=== PATIENT | male | born 1975 | race Two or more races ===

== ENCOUNTER 2016-11-02 18:41 | Inpatient (IN) | payer BC ==
--- NOTE | 2016-11-02 19:50 | ER Document Report ---
ED Medical Screen (RME) - General Stated Complaint: ABDOMINAL PAIN,CHEST PAIN Notes: 41 yo male c/o lower abd pain and chest pain. chest pain started approx 5pm. left sided, nonradiating, sharp. mild shortness of breath, + nausea. + HTN, no diabetes, nonsmoker. no previous cardiac hx. pt is morbidly obese with known hernia, but became hard and painful today. pt very uncomfortable TRAVEL OUTSIDE OF THE [place] IN LAST 30 DAYS: No - Related Data Allergies/Adverse Reactions: Penicillins Allergy (Verified 05/12/15 14:14) Past Medical History - Past Medical History Cardiac Medical History: Reports: Hx Hypertension Denies: Hx Atrial Fibrillation, Hx Congestive Heart Failure, Hx DVT, Hx Heart Attack Past Surgical History: Reports: Hx Cholecystectomy - Immunizations Immunizations up to date: Yes Hx Diphtheria, Pertussis, Tetanus Vaccination: Yes - 2011 Physical Exam - Vital signs Vitals: Temp Pulse Resp BP Pulse Ox 98.1 F 83 20 188/121 H 99 11/02/16 19:36 11/02/16 19:36 11/02/16 19:36 11/02/16 19:36 11/02/16 19:36 Course - Vital Signs Vital signs: Temp Pulse Resp BP Pulse Ox 98.1 F 83 20 202/132 H 99 11/02/16 19:36 11/02/16 19:36 11/02/16 19:36 11/02/16 19:38 11/02/16 19:36
[2016-11-02] MEDS ORDERED: MORPHINE SULFATE 10 MG/ML INJ ONE (20:37)
--- NOTE | 2016-11-02 20:42 | ER Document Report ---
ED General - General Chief Complaint: Chest Pain > 30 Stated Complaint: ABDOMINAL PAIN,CHEST PAIN Cannot obtain history due to: Other - Patient is in severe distress Notes: Patient is a 41-year-old male with past history of a ventral hernia who presents with acute onset of severe progressively worsening pain in the ventral hernia. When I entered the room, patient is in agony, writhing around in the bed holding his abdomen. This does limit the history. He does note that he has never had anything like this in the past. He came directly to the emergency department when he began to experience these symptoms. Nothing improves or worsens his pain. He notes that he had a brief period of burning chest pain after an episode of vomiting but that this has since resolved. Denies any shortness of breath, weakness or numbness. TRAVEL OUTSIDE OF THE [place] IN LAST 30 DAYS: No - Related Data Allergies/Adverse Reactions: Penicillins Allergy (Verified 05/12/15 14:14) Home Medications: Current Home Medications No Home Medications 11/02/16 [History] Past Medical History - General Information source: Patient - Social History Smoking Status: Current Every Day Smoker Chew tobacco use (# tins/day): No Frequency of alcohol use: Occasional Drug Abuse: None Lives with: Spouse/Significant other Family History: Hypertension Patient has suicidal ideation: No Patient has homicidal ideation: No - Past Medical History Cardiac Medical History: Reports: Hx Hypertension - Noncompliant with medicaiton Denies: Hx Atrial Fibrillation, Hx Congestive Heart Failure, Hx DVT, Hx Heart Attack Renal/ Medical History: Denies: Hx Peritoneal Dialysis Past Surgical History: Reports: Hx Cholecystectomy - Immunizations Immunizations up to date: Yes Hx Diphtheria, Pertussis, Tetanus Vaccination: Yes - 2011 Review of Systems - Review of Systems Notes: Constitutional: Negative for fever. HENT: Negative for sore throat. Eyes: Negative for visual changes. Cardiovascular: Positive for chest pain. Respiratory: Negative for shortness of breath. Gastrointestinal: Negative for abdominal pain, vomiting negative for Genitourinary: Negative for dysuria. Musculoskeletal: Negative for back pain. Skin: Negative for rash. Neurological: Negative for headaches, weakness or numbness. 10 point ROS negative except as marked above and in HPI. Physical Exam - Vital signs Vitals: Temp Pulse Resp BP Pulse Ox 98.1 F 83 20 188/121 H 99 11/02/16 19:36 11/02/16 19:36 11/02/16 19:36 11/02/16 19:36 11/02/16 19:36 Interpretation: Hypertensive Notes: PHYSICAL EXAMINATION: GENERAL: Appears to be in severe pain. Writhing around in bed. HEAD: Atraumatic, normocephalic. EYES: Pupils equal round and reactive to light, extraocular movements intact, sclera anicteric, conjunctiva are normal. ENT: nares patent, oropharynx clear without exudates. Moderately dry mucous membranes. NECK: Normal range of motion, supple without lymphadenopathy LUNGS: Breath sounds clear to auscultation bilaterally and equal. No wheezes rales or rhonchi. HEART: Regular rate and rhythm without murmurs ABDOMEN: Obese abdomen. Left sided ventral hernia is extremely firm, painful on palpation. EXTREMITIES: Normal range of motion, no pitting or edema. No cyanosis. NEUROLOGICAL: No focal neurological deficits. Moves all extremities spontaneously and on command. PSYCH: Appears to be in severe pain, anxious but appropriate SKIN: Warm, Dry, normal turgor, no rashes or lesions noted. Course - Re-evaluation Re-evalutation: 11/02/16 20:41 Immediately upon picking the chart I went to assess this patient who was noted to be in severe distress, writhing around in the bed in pain. He has a large left-sided ventral wall hernia that appears to be incarcerated. It is firm and exquisitely tender to palpation. Immediately ordered 10 mg of IV morphine. I immediately called the surgeon voice data communications engineer Dr. Mohamud who will come to asses the patient. Labs have been sent and are pending. 11/02/16 21:11 Dr. Mohamud has assessed the patient and will take emergently to the operating room given clinical exam. Labs have returned and show leukocytosis but otherwise unremarkable. Regarding patient's initial complaint of chest pain: He denies this at this time. His initial EKG is unremarkable without ST changes. I suspect his pain may have been related to nausea and vomiting in the setting of an incarcerated hernia but doubt he is having an AR in the setting of this time. - Vital Signs Vital signs: Temp Pulse Resp BP Pulse Ox 97.1 F 82 15 130/85 H 99 11/03/16 01:10 11/03/16 01:10 11/03/16 02:31 11/03/16 02:31 11/03/16 02:31 - Laboratory Result Diagrams: 11/03/16 03:55 11/02/16 20:30 Laboratory results interpreted by me: 11/02/16 11/02/16 20:30 20:30 WBC 18.0 H RBC 5.70 H Seg Neutrophils % 82.6 H Lymphocytes % 9.5 L Absolute Neutrophils 14.9 H Alkaline Phosphatase 131 H Creatine Kinase 272 H Discharge - Discharge Clinical Impression: Incarcerated ventral hernia Condition: Critical Disposition: ADMITTED INPATIENT Admitting Provider: Surgicalist - [facility] Admitted: OR
[2016-11-02] MEDS ORDERED: NORMAL SALINE 1000 ML 1,000 ML IV ONE (20:43)
[2016-11-02 20:46] LABS: ABSOLUTE BASOPHILS # (AUTO) 0.1 10^3/uL (0.0-0.2); ABSOLUTE EOSINOPHILS # (AUTO) 0.1 10^3/uL (0.0-0.6); ABSOLUTE LYMPHOCYTES (AUTO) 1.7 10^3/uL (0.5-4.7); ABSOLUTE MONOCYTES (AUTO) 1.2 10^3/uL (0.1-1.4); ABSOLUTE NEUT (AUTO) 14.9 10^3/uL (1.7-8.2); BASOPHILS % (AUTO) 0.4 % (0-2); EOSINOPHILS % (AUTO) 0.7 % (0-6); HEMOGLOBIN 15.6 g/dL (13.5-17.0); HGB HCT DIFFERENCE -0.2; LYMPHOCYTES % (AUTO) 9.5 % (13-45); MEAN CORPUSCULAR HEMOGLOBIN 27.3 pg (27.0-33.4); MEAN CORPUSCULAR HGB CONC 33.1 g/dL (32.0-36.0); MEAN CORPUSCULAR VOLUME 83 fl (80-97); MONOCYTES % (AUTO) 6.8 % (3-13); RED CELL DISTRIBUTION WIDTH 13.5 % (11.5-14.0); SEGMENTED NEUTROPHILS % (AUTO) 82.6 % (42-78)
[2016-11-02 21:08] LABS: ALANINE AMINOTRANSFERASE 35 U/L (21-72); ALBUMIN 4.8 g/dL (3.5-5.0); ALKALINE PHOSPHATASE 131 U/L (38-126); ANION GAP 15 (5-19); ASPARTATE AMINO TRANSFERASE 30 U/L (17-59); BILIRUBIN,TOTAL 0.8 mg/dL (0.2-1.3); BLOOD UREA NITROGEN 17 mg/dL (7-20); CALCIUM 9.9 mg/dL (8.4-10.2); CARBON DIOXIDE 24 mmol/L (22-30); CHLORIDE 104 mmol/L (98-107); CREATINE KINASE 272 U/L (55-170); GLUCOSE 90 mg/dL (75-110); LIPASE 58.2 U/L (23-300); POTASSIUM 4.1 mmol/L (3.6-5.0); SODIUM 143.2 mmol/L (137-145); TOTAL PROTEIN 8.2 g/dL (6.3-8.2)
[2016-11-02 21:19] LABS: TROPONIN I < 0.012 ng/mL
[2016-11-02] MEDS ORDERED: FENTANYL CITRATE INJ/PF 250 MCG/5 ML AMPULE ONE (21:40)
[2016-11-02] MEDS ORDERED: MIDAZOLAM 2 MG/2 ML INJ ONE (21:41)
[2016-11-02] MEDS ORDERED: PROPOFOL INJ 200 MG/20 ML VIAL IV ONE (21:41)
[2016-11-02] MEDS ORDERED: ACETAMINOPHEN 100 ML IV ONE (21:41)
[2016-11-02] MEDS ORDERED: HYDROMORPHONE HCL INJ/PF 2 MG/ML AMPULE ONE ×2 (21:41→21:42)
[2016-11-02] MEDS ORDERED: CLINDAMYCIN 900 MG/D5W RTU 50 ML IV ONE (22:11)
--- NOTE | 2016-11-02 22:11 | PDOC H&P ---
History of Present Illness Admission Date/PCP: 11/02/16 21:32 History of Present Illness: JIAN SEYMOUR is a 41 year old male who noticed acute onset of severe abdominal pain around a ventral/umbilical hernia at 1 PM today. The patient had an open cholecystectomy for gangrenous cholecystitis in 1999 at [facility] in [place]. Within 2-3 years after surgery, he noticed a small egg-sized lump above his umbilicus. This is where a drain exited his abdomen after surgery. Approximate 4 years ago he noticed the bulge above his umbilicus had increased in size to that of a softball. It remained soft and was only tender if bumped or excessively manipulated. Today at 1 PM he was at work changing the battery in a vehicle at approximately 1 PM when he noticed increased pain around the lump, as well as a significant increase in the size lump. The lump was also very firm. The pain began as moderate pain and increased to severe, 10/10, sharp, incessant pain. He began having nausea shortness of breath, all related to severe pain. He presented to the emergency room. The pain was exquisitely tender to palpation. He was given 10 mg of morphine in the emergency department which only slightly decreased his pain. Surgery was consulted for suspected incarcerated, strangulated ventral hernia. Past Medical History Cardiac Medical History: Reports: Hypertension - Noncompliant with medicaiton Denies: Atrial Fibrillation, Congestive Heart Failure, DVT, Myocardial Infarction Endocrine Medical History: Reports: Obesity Past Surgical History Past Surgical History: Reports: Cholecystectomy Social History Information Source: Patient Lives with: Family Smoking Status: Current Every Day Smoker Cigars Per Day: 1 Frequency of Alcohol Use: Occasional - 3 beers per week Hx Recreational Drug Use: No Drugs: None Family History Family History: CAD, CVA, DM, Hypertension, Other - No family or personal history of bleeding disorders, blood clots or anesthesia problems. Parental Family History Reviewed: Yes Children Family History Reviewed: Yes Sibling(s) Family History Reviewed.: Yes Medication/Allergy Home Medications: No Home Medications 11/02/16 Allergies/Adverse Reactions: Penicillins Allergy (Verified 05/12/15 14:14) Review of Systems All systems: reviewed and no additional remarkable complaints except as stated Physical Exam Vital Signs: Temp Pulse Resp BP Pulse Ox 98.1 F 83 19 202/118 H 99 11/02/16 19:36 02/01/17 19:36 11/02/16 21:02 11/02/16 21:02 11/02/16 21:02 General appearance: PRESENT: mild distress - The patient is in mild to moderate distress until reduction was attempted. During reduction in for several minutes afterwards he is in severe distress., morbidly obese Head exam: PRESENT: normocephalic Eye exam: PRESENT: EOMI Mouth exam: PRESENT: tongue midline Neck exam: ABSENT: JVD, lymphadenopathy, tenderness, thyromegaly Respiratory exam: PRESENT: clear to auscultation cecilia Cardiovascular exam: PRESENT: RRR, tachycardia GI/Abdominal exam: PRESENT: guarding, rigid - Large, rigid, exquisitely tender bulge above the umbilicus. The bulge is approximately the size of a small loaf of bread. Reduction is attempted after 10 mg of morphine were given. The patient is crying out, tearful, writhing in pain. Reduction is unsuccessful after multiple attempts., tenderness Extremities exam: ABSENT: tenderness Neurological exam: PRESENT: alert, oriented to person, oriented to place, oriented to time, oriented to situation Psychiatric exam: PRESENT: appropriate affect - Appropriate given the situation Skin exam: PRESENT: other - Tattoos. ABSENT: jaundice, rash Results Laboratory Results: White count is 18 with a left shift. Alkaline phosphatase and CK are elevated. Assessment & Plan - Diagnosis (1) Incarcerated ventral hernia Is this a current diagnosis for this admission?: YesPlan: Morbidly obese male with uncontrolled hypertension. Incarcerated, probably strangulated ventral incisional hernia. Recommend emergent ventral incisional hernia repair. Possible bowel resection, possible ostomy creation, possible mesh placement. I explained that mesh will not be placed if there is compromised bowel or infection. I explained that there will be a high rate of recurrence of this hernia under the circumstances and given his morbid obesity. Our primary concern is trying to intervene before bowel becomes ischemic. We discussed ventral incisional hernia repair, possible ostomy creation, possible bowel resection, possible mesh placement in detail. Questions were answered. We discussed the risks, benefits and alternatives including , heart attack , stroke, blood clots in the legs, blood clots in lungs, pneumonia, bleeding, infection, mesh infection, hernia, anastomotic leak, damage to surrounding structures such as bladder, bowels, blood vessels or other abdominal structures resulting in serious long-term health issues. We discussed possible ostomy creation and possible ostomy reversal, but that not all ostomies are reversed. Understands and wishes to proceed. Nothing by mouth, IV fluids, clindamycin preop IV antibiotics due to penicillin allergy, SCDs, Caba catheter once asleep.
[2016-11-02] MEDS ORDERED: LIDOCAINE 1% INJ-PF (10 MG/ML) 30 ML SDV ONE (22:42)
[2016-11-02] MEDS ORDERED: BUPIVACAINE HCL 0.25% /EPINEPHRINE INJ/PF 30 ML SDV ONE (22:42)
[2016-11-02] MEDS ORDERED: BUPIVACAINE HCL 0.25% /EPINEPHRINE INJ/PF 30 ML SDV INJ ONE (22:43)
[2016-11-02] MEDS ORDERED: LIDOCAINE 1% INJ-PF (10 MG/ML) 30 ML SDV INJ ONE (22:43)
[2016-11-02] MEDS ORDERED: LABETALOL HCL INJ 20 MG/4 ML DISP.SYRIN IV PRN (23:11)
[2016-11-02] MEDS ORDERED: MEPERIDINE HCL/PF INJ 25 MG/1 ML DISP.SYRIN IV PRN (23:11)
[2016-11-02] MEDS ORDERED: MORPHINE SULFATE 10 MG/ML INJ IV PRN (23:11)
[2016-11-02] MEDS ORDERED: PROMETHAZINE HCL INJ 25 MG/1 ML VIAL IV PRN (23:11)
[2016-11-02] MEDS ORDERED: FENTANYL CITRATE INJ/PF 100 MCG/2 ML AMPUL IV PRN ×3 (23:11)
[2016-11-02] MEDS ORDERED: DIPHENHYDRAMINE HCL 50 MG/ML VIAL IV PRN (23:11)
[2016-11-03] MEDS ORDERED: PROPOFOL 100 ML IV ONE (00:52)
[2016-11-03] MEDS ORDERED: MORPHINE SULFATE 10 MG/ML INJ IV PRN (01:18)
--- NOTE | 2016-11-03 01:30 | Brief Operative Note ---
BRIEF OPERATIVE REPORT DATE OF SURGERY: 11/03/16 TIME OF SURGERY: 00:30 PREOPERATIVE DIAGNOSIS: Incarcerated ventral hernia. POSTOPERATIVE DIAGNOSIS: Incarcerated, strangulated ventral hernia with ischemic small bowel. SURGEON: UGO KC FINDINGS: Incarcerated strangulated small bowel in a ventral hernia. COMPLICATIONS: None noted. ESTIMATED BLOOD LOSS: 150 mL TISSUE REMOVED OR ALTERED: 1. Hernia sac. 2. Small bowel. TECHNICAL PROCEDURE: 1. Small bowel resection. 2. Primary ventral hernia repair.
[2016-11-03] MEDS ORDERED: INFLUENZA ADLT QUAD (36MOS+) 2016-17 VAC 0.5 ML SYR IM PRN (02:52)
[2016-11-03] MEDS ORDERED: PANTOPRAZOLE SODIUM 40 MG VIAL IV ONE (03:00)
[2016-11-03] MEDS: PROPOFOL 100 ML IV PRN ×3 (03:09→07:00)
[2016-11-03] MEDS: MORPHINE SULFATE 10 MG/ML INJ IV PRN ×6 (03:24→23:33)
[2016-11-03 04:04] LABS: HEMATOCRIT 43.2 % (37.9-51.0); HEMOGLOBIN 14.4 g/dL (13.5-17.0); MEAN CORPUSCULAR HEMOGLOBIN 27.4 pg (27.0-33.4); MEAN CORPUSCULAR HGB CONC 33.3 g/dL (32.0-36.0); MEAN CORPUSCULAR VOLUME 82 fl (80-97); RED BLOOD COUNT 5.23 10^6/uL (4.35-5.55); RED CELL DISTRIBUTION WIDTH 13.6 % (11.5-14.0); WHITE BLOOD COUNT 17.4 10^3/uL (4.0-10.5)
[2016-11-03 04:20] LABS: AMORPHOUS SEDIMENT,URINE 1+ /HPF; APPEARANCE,URINE TURBID; BILIRUBIN,URINE NEGATIVE (NEGATIVE); GLUCOSE, URINE NEGATIVE (NEGATIVE); KETONES,URINE NEGATIVE (NEGATIVE); LEUKOCYTE ESTERASE,URINE NEGATIVE (NEGATIVE); NITRITE,URINE NEGATIVE (NEGATIVE); PROTEIN,URINE NEGATIVE (NEGATIVE); URINE SPECIFIC GRAVITY 1.031; UROBILINOGEN,URINE NEGATIVE mg/dL (<2.0)
[2016-11-03 04:22] LABS: ALANINE AMINOTRANSFERASE 73 U/L (21-72); ALBUMIN 3.4 g/dL (3.5-5.0); ALKALINE PHOSPHATASE 102 U/L (38-126); ANION GAP 9 (5-19); ASPARTATE AMINO TRANSFERASE 77 U/L (17-59); BILIRUBIN,TOTAL 1.1 mg/dL (0.2-1.3); BLOOD UREA NITROGEN 16 mg/dL (7-20); CALCIUM 8.9 mg/dL (8.4-10.2); CARBON DIOXIDE 25 mmol/L (22-30); CHLORIDE 106 mmol/L (98-107); CREATININE RESULT 0.81 mg/dL (0.52-1.25); GLUCOSE 120 mg/dL (75-110); PHOSPHORUS 4.4 mg/dL (2.5-4.5); POTASSIUM 4.4 mmol/L (3.6-5.0); TOTAL PROTEIN 6.6 g/dL (6.3-8.2); TRIGLYCERIDES 120 mg/dL (<150)
[2016-11-03] MEDS: RINGERS SOLUTION,LACTATED 1,000 ML IV PRN ×2 (07:00→18:42)
[2016-11-03] MEDS: ONDANSETRON HCL INJ/PF 4 MG/2 ML SDV IV PRN (08:08)
--- NOTE | 2016-11-03 08:40 | Operative Report ---
Operative Report DATE OF SURGERY: 11/03/16 PREOPERATIVE DIAGNOSIS: Incarcerated ventral hernia. POSTOPERATIVE DIAGNOSIS: Incarcerated, strangulated ventral hernia with ischemic small bowel. OPERATION: 1. Small bowel resection. 2. Primary ventral hernia repair. SURGEON: UGO KC ANESTHESIA: GA TISSUE REMOVED OR ALTERED: 1. Hernia sac. 2. Small bowel. COMPLICATIONS: None noted ESTIMATED BLOOD LOSS: 150 mL INTRAOPERATIVE FINDINGS: Incarcerated strangulated small bowel in a ventral hernia. PROCEDURE: Patient was brought to the operative suite and placed supine on the OR table. Timeout was performed. Antibiotics were administered. SCDs were placed. Padding and positioning was appropriate. Patient was induced and intubated and maintained on general endotracheal anesthesia throughout the procedure. Caba catheter was placed sterilely. Patient was prepped and draped. Vertical midline incision was made over the hernia contents. Incision extended from the umbilicus approximately half way to the epigastrium. This incision was later extended 2-3 cm in each direction. The incision was made with a 10 blade scalpel and then continued down with electrocautery to the hernia sac. The hernia sac was carefully dissected through with sharp and blunt dissection as well as cautery. The hernia sac contained ischemic bowel, unhealthy but not ischemic bowel, and omentum. The hernia defect was approximately 6 cm in diameter and was extended for 5 cm superiorly to allow for reduction of the abdominal contents. The hernia sac was dissected out down to the level of the fascia circumferentially. The hernia sac had many pockets and outpouchings which were all dissected out. Attachments of the omentum to various parts of the hernia sac were divided with electrocautery. The hernia sac was dissected free of the surrounding subcutaneous tissue, was excised and sent to pathology for further analysis. The bowel, which had been in the abdominal cavity for greater than half an hour at this point, was again evaluated. The unhealthy but nonischemic appearing portions all looked healthy at this point. The omentum was nonischemic. Some bleeding points on the omentum were controlled with electrocautery. The remaining segment of bowel which was approximately 45 cm long appeared ischemic with a compromised mesentery. This portion of ischemic bowel was resected. It appeared to be around the junction of the jejunum and ileum. It was resected by dividing at both ends with a WEI blue load 55 mm stapler. The intervening segment of mesentery was taken down with LigaSure device. The 2 ends were then anastomosed with a [id number] functional end and anastomosis. The common channel was created by firing a blue load 55 mm WEI stapler down the antimesenteric portions of the side-by- side bowel. The resulting in enterotomy was closed with a TX 60 stapler. A 3- 0 silk crotch stitch was placed. The mesenteric defect was closed with a running 3-0 Vicryl. 2 small bleeding points were controlled with electrocautery and a 3-0 Vicryl hemostatic stitch. The anastomosis was widely patent, and had no kinks or twist, and had no tension. It was placed back into the abdominal cavity. The abdominal cavity was surveyed. A bleeding point on the omentum was controlled with cautery. The bowel was run from terminal ileum to ligament of Treitz. The anastomosis appeared healthy and no other issues were found. The abdominal cavity was closed at the level of the fascia with a looped PDS suture. 2 were used, one working superior to inferior and one working inferior to superior and tying in the middle. Since compromised, ischemic bowel was present in the hernia defect and the bowel resection was performed with controlled spillage, but spillage nonetheless, no mesh was placed. Preliminary counts were correct prior to fascial closure. The resulting midline wound was irrigated copiously and then a wound VAC was placed in the defect. All lap needle sponge counts were correct. The patient tolerated the procedure well and was taken to the ICU still intubated.
[2016-11-03] MEDS: PANTOPRAZOLE SODIUM 40 MG VIAL IV SCH ×2 (10:15→21:50)
--- NOTE | 2016-11-03 10:48 | PDOC PROGRESS REPORT ---
Subjective Progress Note for:: 11/03/16 Subjective:: Patient self extubated himself but the is doing well await an alert and appropriate. Physical Exam Vital Signs: Temp Pulse Resp BP Pulse Ox 98.4 F 60 18 157/98 H 99 11/03/16 08:00 11/03/16 10:00 11/03/16 10:00 11/03/16 08:00 11/03/16 10:00 Intake & Output 11/02/16 11/03/16 11/04/16 06:59 06:59 06:59 Output Total 245 275 Balance -245 -275 Weight 153.7 kg General appearance: PRESENT: no acute distress, cooperative Respiratory exam: PRESENT: clear to auscultation cecilia Cardiovascular exam: PRESENT: RRR GI/Abdominal exam: PRESENT: other - Soft, obese, difficult to tell whether he is distended. Wound VAC in place. Appropriate mild tenderness. Extremities exam: PRESENT: other - No swelling, no tenderness Neurological exam: PRESENT: oriented to person, oriented to place Psychiatric exam: PRESENT: appropriate affect Results Laboratory Results: 11/03/16 03:55 11/03/16 03:55 11/03/16 11/03/16 11/03/16 03:45 03:55 03:55 WBC 17.4 H RBC 5.23 Hgb 14.4 Hct 43.2 MCV 82 MCH 27.4 MCHC 33.3 RDW 13.6 Plt Count 238 Sodium 140.0 Potassium 4.4 Chloride 106 Carbon Dioxide 25 Anion Gap 9 BUN 16 Creatinine 0.81 Est GFR ( Amer) > 60 Est GFR (Non-Af Amer) > 60 Glucose 120 H Calcium 8.9 Phosphorus 4.4 Magnesium 2.0 Total Bilirubin 1.1 AST 77 H ALT 73 H Alkaline Phosphatase 102 Total Protein 6.6 Albumin 3.4 L Triglycerides 120 Urine Color YELLOW Urine Appearance TURBID Urine pH 5.0 Ur Specific Rindge 1.031 Urine Protein NEGATIVE Urine Glucose (UA) NEGATIVE Urine Ketones NEGATIVE Urine Blood SMALL H Urine Nitrite NEGATIVE Ur Leukocyte Esterase NEGATIVE Urine RBC (Auto) 6 Impressions: Chest X-Ray 11/03/16 01:23 IMPRESSION: Perihilar airspace densities are identified which could represent atelectatic changes or perihilar infiltrates. Other findings as noted above Assessment & Plan - Diagnosis (1) Incarcerated ventral hernia Is this a current diagnosis for this admission?: YesPlan: With strangulated small bowel status post resection and primary repair. Patient looks good. We'll keep an eye on him in the ICU with probable transfer to the floor tomorrow. Will get patient out of bed ambulating. Await bowel function.
--- NOTE | 2016-11-03 11:18 | EKG REPORT ---
SEVERITY:- NORMAL ECG - SINUS RHYTHM : Confirmed by: Adriana Thorne 03-Nov-2016 11:18:19
[2016-11-03] MEDS: ENOXAPARIN SODIUM INJ 40 MG/0.4 ML DISP.SYRIN SUBCUT SCH (12:26)
[2016-11-04] MEDS: MORPHINE SULFATE 10 MG/ML INJ IV PRN ×5 (02:35→21:08)
[2016-11-04] MEDS: RINGERS SOLUTION,LACTATED 1,000 ML IV PRN ×2 (03:49→13:19)
[2016-11-04 04:37] LABS: HEMATOCRIT 42.6 % (37.9-51.0); HGB HCT DIFFERENCE -0.6; MEAN CORPUSCULAR HEMOGLOBIN 27.9 pg (27.0-33.4); MEAN CORPUSCULAR HGB CONC 32.9 g/dL (32.0-36.0); MEAN CORPUSCULAR VOLUME 85 fl (80-97); RED BLOOD COUNT 5.04 10^6/uL (4.35-5.55); RED CELL DISTRIBUTION WIDTH 14.1 % (11.5-14.0); WHITE BLOOD COUNT 13.4 10^3/uL (4.0-10.5)
[2016-11-04 04:49] LABS: ALANINE AMINOTRANSFERASE 66 U/L (21-72); ALBUMIN 3.6 g/dL (3.5-5.0); ALKALINE PHOSPHATASE 99 U/L (38-126); ANION GAP 9 (5-19); ASPARTATE AMINO TRANSFERASE 31 U/L (17-59); BILIRUBIN,TOTAL 1.2 mg/dL (0.2-1.3); BLOOD UREA NITROGEN 12 mg/dL (7-20); CALCIUM 8.7 mg/dL (8.4-10.2); CARBON DIOXIDE 27 mmol/L (22-30); CHLORIDE 105 mmol/L (98-107); CREATININE RESULT 0.84 mg/dL (0.52-1.25); GLUCOSE 84 mg/dL (75-110); MAGNESIUM 1.9 mg/dL (1.6-2.3); PHOSPHORUS 3.5 mg/dL (2.5-4.5); POTASSIUM 4.1 mmol/L (3.6-5.0); SODIUM 140.7 mmol/L (137-145); TOTAL PROTEIN 6.4 g/dL (6.3-8.2)
[2016-11-04] MEDS: ENOXAPARIN SODIUM INJ 40 MG/0.4 ML DISP.SYRIN SUBCUT SCH (07:32)
[2016-11-04] MEDS: PANTOPRAZOLE SODIUM 40 MG VIAL IV SCH ×2 (09:39→22:27)
[2016-11-04] MEDS ORDERED: MORPHINE SULFATE 10 MG/ML INJ IV ONE (23:00)
[2016-11-05] MEDS: MORPHINE SULFATE 10 MG/ML INJ IV PRN ×8 (00:05→22:48)
[2016-11-05] MEDS: RINGERS SOLUTION,LACTATED 1,000 ML IV PRN ×2 (00:33→11:12)
[2016-11-05] MEDS: ONDANSETRON HCL INJ/PF 4 MG/2 ML SDV IV PRN ×2 (05:45→22:50)
--- NOTE | 2016-11-05 06:10 | PDOC PROGRESS REPORT ---
Subjective Progress Note for:: 11/04/16 Subjective:: Late note for 11/04/2016 rounding. Denies nausea or vomiting. Thirsty. Pain control still an issue. Physical Exam Vital Signs: Temp Pulse Resp BP Pulse Ox 100.3 F 107 H 20 140/82 H 98 11/04/16 23:18 11/05/16 02:00 11/04/16 23:18 11/04/16 23:18 11/04/16 23:18 Intake & Output 11/03/16 11/04/16 11/05/16 06:59 06:59 06:59 Intake Total 1695 1024 Output Total 245 1350 1175 Balance -245 345 -151 Weight 153.7 kg 156 kg 156 kg General appearance: PRESENT: no acute distress, morbidly obese Head exam: PRESENT: normocephalic GI/Abdominal exam: PRESENT: distended, soft, tenderness, other - No bowel sounds. Pain seems to be around the incision. Wound VAC in place. Was on intermittent pressure, switched to continuous pressure. Neurological exam: PRESENT: alert, oriented to situation Psychiatric exam: PRESENT: appropriate affect, normal mood Skin exam: ABSENT: jaundice Results Laboratory Results: 11/04/16 04:25 11/04/16 04:25 Impressions: Chest X-Ray 11/03/16 01:23 IMPRESSION: Perihilar airspace densities are identified which could represent atelectatic changes or perihilar infiltrates. Other findings as noted above Assessment & Plan - Diagnosis (1) Incarcerated ventral hernia Is this a current diagnosis for this admission?: YesPlan: Remove Caba. Ice chips. Abdominal binder. Keep wound VAC on continuous 105 mmHg suction.
[2016-11-05 06:46] LABS: ABSOLUTE EOSINOPHILS # (AUTO) 0.1 10^3/uL (0.0-0.6); ABSOLUTE LYMPHOCYTES (AUTO) 0.9 10^3/uL (0.5-4.7); ABSOLUTE MONOCYTES (AUTO) 1.5 10^3/uL (0.1-1.4); ABSOLUTE NEUT (AUTO) 14.2 10^3/uL (1.7-8.2); BASOPHILS % (AUTO) 0.2 % (0-2); EOSINOPHILS % (AUTO) 0.3 % (0-6); HEMOGLOBIN 14.2 g/dL (13.5-17.0); HGB HCT DIFFERENCE -0.4; LYMPHOCYTES % (AUTO) 5.2 % (13-45); MEAN CORPUSCULAR HEMOGLOBIN 27.8 pg (27.0-33.4); MEAN CORPUSCULAR HGB CONC 32.9 g/dL (32.0-36.0); MEAN CORPUSCULAR VOLUME 85 fl (80-97); MONOCYTES % (AUTO) 9.2 % (3-13); RED BLOOD COUNT 5.09 10^6/uL (4.35-5.55); RED CELL DISTRIBUTION WIDTH 13.7 % (11.5-14.0); SEGMENTED NEUTROPHILS % (AUTO) 85.1 % (42-78); WHITE BLOOD COUNT 16.7 10^3/uL (4.0-10.5)
[2016-11-05 06:56] LABS: ALANINE AMINOTRANSFERASE 41 U/L (21-72); ALBUMIN 3.4 g/dL (3.5-5.0); ALKALINE PHOSPHATASE 110 U/L (38-126); ANION GAP 10 (5-19); ASPARTATE AMINO TRANSFERASE 26 U/L (17-59); BILIRUBIN,TOTAL 1.1 mg/dL (0.2-1.3); BLOOD UREA NITROGEN 12 mg/dL (7-20); CALCIUM 8.8 mg/dL (8.4-10.2); CARBON DIOXIDE 28 mmol/L (22-30); CHLORIDE 102 mmol/L (98-107); CREATININE RESULT 0.78 mg/dL (0.52-1.25); GLUCOSE 88 mg/dL (75-110); MAGNESIUM 1.9 mg/dL (1.6-2.3); PHOSPHORUS 3.3 mg/dL (2.5-4.5); POTASSIUM 3.9 mmol/L (3.6-5.0); SODIUM 140.3 mmol/L (137-145); TOTAL PROTEIN 7.5 g/dL (6.3-8.2)
[2016-11-05] MEDS: ENOXAPARIN SODIUM INJ 40 MG/0.4 ML DISP.SYRIN SUBCUT SCH (07:32)
[2016-11-05] MEDS: PANTOPRAZOLE SODIUM 40 MG VIAL IV SCH ×2 (09:30→21:29)
--- NOTE | 2016-11-05 12:02 | PDOC CONSULTATION ---
Consultation Consult Date: 11/05/16 Attending physician:: UGO KC Consult reason:: Fever in a postop patient History of Present Illness Admission Date/PCP: 11/03/16 01:18 History of Present Illness: JIAN SEYMOUR is a 41 year old male who was admitted with a strangulated umbilical hernia. Patient has undergone surgical repair of this. Patient has had a fever and elevated white count postoperatively as well some pain. A CT scan done today shows bilateral pneumonia. Patient reports that he has had a cough has been relatively nonproductive. He denies any chest pain and denies any shortness of breath. His history is remarkable for hypertension and having obesity but no history of sleep apnea by his report. Past Medical History Cardiac Medical History: Reports: Hypertension - Noncompliant with medicaiton Denies: Atrial Fibrillation, Congestive Heart Failure, DVT, Myocardial Infarction EENT Medical History: Reports: None Neurological Medical History: Reports: None Endocrine Medical History: Reports: Obesity Malignancy Medical History: Reports: None GI Medical History: Reports: Other - Strangulated umbilical hernia Musculoskeltal Medical History: Reports: None Skin Medical History: Reports: None Psychiatric Medical History: Reports: None Traumatic Medical History: Reports: None Hematology: Reports: None Infectious Medical History: Reports: None Past Surgical History Past Surgical History: Reports: Cholecystectomy Social History Information Source: Patient Lives with: Spouse/Significant other Smoking Status: Current Every Day Smoker Cigars Per Day: 1 Frequency of Alcohol Use: Occasional - 3 beers per week Hx Recreational Drug Use: No Drugs: None Hx Prescription Drug Abuse: No - Advance Directive Resuscitation Status: Full Code Family History Family History: Hypertension Family History: Father is 70 alive and has diabetes, hypertension, gout, hypothyroidism. Mother is alive in a 61. She has problems with low blood pressure but no other problems. Parental Family History Reviewed: Yes Children Family History Reviewed: No Sibling(s) Family History Reviewed.: No Medication/Allergy Home Medications: No Home Medications 11/02/16 Allergies/Adverse Reactions: Penicillins Allergy (Verified 05/12/15 14:14) Review of Systems Constitutional: PRESENT: fever(s) Eyes: ABSENT: visual disturbances Ears: ABSENT: hearing changes Cardiovascular: ABSENT: chest pain, dyspnea on exertion, edema, orthropnea, palpitations Respiratory: PRESENT: cough. ABSENT: hemoptysis Gastrointestinal: PRESENT: abdominal pain Genitourinary: PRESENT: as per HPI Musculoskeletal: ABSENT: joint swelling Integumentary: ABSENT: rash Neurological: ABSENT: abnormal gait, abnormal speech, confusion, dizziness, focal weakness, syncope Psychiatric: ABSENT: anxiety, depression Endocrine: ABSENT: cold intolerance, heat intolerance, polydipsia, polyuria Hematologic/Lymphatic: ABSENT: easy bleeding, easy bruising Physical Exam Vital Signs: Temp Pulse Resp BP Pulse Ox 99.8 F 110 H 19 178/99 H 91 L 11/05/16 11:42 11/05/16 11:42 11/05/16 11:42 11/05/16 11:42 11/05/16 11:42 Intake & Output 11/04/16 11/05/16 11/06/16 06:59 06:59 06:59 Intake Total 1695 2309 Output Total 1350 1725 Balance 345 584 Weight 156 kg 154.5 kg General appearance: PRESENT: no acute distress, morbidly obese Head exam: PRESENT: atraumatic, normocephalic Eye exam: PRESENT: conjunctiva pink, EOMI, PERRLA. ABSENT: scleral icterus Ear exam: PRESENT: normal external ear exam Mouth exam: PRESENT: moist, tongue midline Neck exam: ABSENT: carotid bruit, JVD, lymphadenopathy, thyromegaly Respiratory exam: PRESENT: rhonchi - Few scattered rhonchi bilaterally. Cardiovascular exam: PRESENT: RRR. ABSENT: diastolic murmur, rubs, systolic murmur GI/Abdominal exam: PRESENT: tenderness, other - Patient has an open surgical wound in the midline with a wound VAC in place.. ABSENT: distended, guarding, mass, organolmegaly, rebound Rectal exam: PRESENT: deferred Extremities exam: PRESENT: full ROM. ABSENT: calf tenderness, clubbing, pedal edema Neurological exam: PRESENT: alert, awake, oriented to person, oriented to place , oriented to time, oriented to situation, CN II-XII grossly intact. ABSENT: motor sensory deficit Psychiatric exam: PRESENT: appropriate affect Skin exam: PRESENT: dry, intact, warm, other - Midline surgical abdominal wound with wound VAC in place.. ABSENT: cyanosis, rash Results Laboratory Results: 11/05/16 06:21 11/05/16 06:21 11/05/16 11/05/16 06:21 06:21 WBC 16.7 H RBC 5.09 Hgb 14.2 Hct 43.0 MCV 85 MCH 27.8 MCHC 32.9 RDW 13.7 Plt Count 231 Seg Neutrophils % 85.1 H Lymphocytes % 5.2 L Monocytes % 9.2 Eosinophils % 0.3 Basophils % 0.2 Absolute Neutrophils 14.2 H Absolute Lymphocytes 0.9 Absolute Monocytes 1.5 H Absolute Eosinophils 0.1 Absolute Basophils 0.0 Sodium 140.3 Potassium 3.9 Chloride 102 Carbon Dioxide 28 Anion Gap 10 BUN 12 Creatinine 0.78 Est GFR ( Amer) > 60 Est GFR (Non-Af Amer) > 60 Glucose 88 Calcium 8.8 Phosphorus 3.3 Magnesium 1.9 Total Bilirubin 1.1 AST 26 ALT 41 Alkaline Phosphatase 110 Total Protein 7.5 Albumin 3.4 L Impressions: Abdomen/Pelvis CT 11/05/16 00:00 IMPRESSION: Edema and subcutaneous soft tissues and central peritoneal, expected sequelae from recent surgery. Bilateral pneumonia. Chest X-Ray 11/05/16 07:32 IMPRESSION: Basilar opacities. Assessment & Plan - Diagnosis (1) Pneumonia Is this a current diagnosis for this admission?: YesPlan: The patient has bilateral pneumonia found on CT scan done of the abdomen. Postoperatively he has not been moving around much is encouraged to get up out of bed as much as possible. Will obtain blood and sputum cultures. We'll start on Levaquin and Zyvox. He is encouraged to try to ambulate as much as possible. (2) Incarcerated ventral hernia Is this a current diagnosis for this admission?: YesPlan: Patient has had surgical repair of this. (3) Hypertension Is this a current diagnosis for this admission?: YesPlan: Patient is getting labetalol when necessary. - Time Time Spent: 50 to 70 Minutes - Inpatient Certification Medical Necessity: Need for IV Antibiotics - Plan Summary Plan Summary: We'll continue to follow this patient along with you
[2016-11-05] MEDS ORDERED: LINEZOLID 600 MG RTU 300 ML IV ONE (12:15)
[2016-11-05] MEDS: LEVOFLOXACIN 750 MG/D5W RTU 750 MG/150 ML RTUPB IV SCH (13:26)
[2016-11-05 15:03] LABS: APPEARANCE,URINE CLEAR; BILIRUBIN,URINE NEGATIVE (NEGATIVE); GLUCOSE, URINE NEGATIVE (NEGATIVE); KETONES,URINE 80 mg/dL (NEGATIVE); LEUKOCYTE ESTERASE,URINE NEGATIVE (NEGATIVE); NITRITE,URINE NEGATIVE (NEGATIVE); PROTEIN,URINE NEGATIVE (NEGATIVE); UROBILINOGEN,URINE NEGATIVE mg/dL (<2.0)
[2016-11-05] MEDS: LINEZOLID 300 ML IV SCH (21:26)
--- NOTE | 2016-11-05 22:25 | PDOC PROGRESS REPORT ---
Subjective Subjective:: Earlier today was tachycardic and had temperature of 100.3. Chest x-ray and CT scan were done. Bilateral bibasilar lung opacities consistent with developing pneumonia. Hospitalist service was consulted. Patient denied fevers or chills , shortness of breath. Patient denied nausea or vomiting. Reports thirst. Reports flatus, no bowel movement. Physical Exam Vital Signs: Temp Pulse Resp BP Pulse Ox 99.6 F 88 19 177/102 H 91 L 11/05/16 15:12 11/05/16 15:12 11/05/16 15:12 11/05/16 15:12 11/05/16 15:12 Intake & Output 11/04/16 11/05/16 11/06/16 06:59 06:59 06:59 Intake Total 1695 2309 1029 Output Total 1350 1725 850 Balance 345 584 179 Weight 156 kg 154.5 kg General appearance: PRESENT: no acute distress, morbidly obese Head exam: PRESENT: normocephalic Mouth exam: PRESENT: tongue midline GI/Abdominal exam: PRESENT: normal bowel sounds, soft, tenderness, other - Wound VAC was removed and replaced. Wound has granulation tissue in the base with the blood supply. No signs of infection, purulent drainage etc.. ABSENT: distended Neurological exam: PRESENT: alert, oriented to situation Psychiatric exam: PRESENT: appropriate affect, normal mood Results Laboratory Results: 11/05/16 06:21 11/05/16 06:21 11/05/16 11/05/16 11/05/16 06:21 06:21 14:30 WBC 16.7 H RBC 5.09 Hgb 14.2 Hct 43.0 MCV 85 MCH 27.8 MCHC 32.9 RDW 13.7 Plt Count 231 Seg Neutrophils % 85.1 H Lymphocytes % 5.2 L Monocytes % 9.2 Eosinophils % 0.3 Basophils % 0.2 Absolute Neutrophils 14.2 H Absolute Lymphocytes 0.9 Absolute Monocytes 1.5 H Absolute Eosinophils 0.1 Absolute Basophils 0.0 Sodium 140.3 Potassium 3.9 Chloride 102 Carbon Dioxide 28 Anion Gap 10 BUN 12 Creatinine 0.78 Est GFR ( Amer) > 60 Est GFR (Non-Af Amer) > 60 Glucose 88 Calcium 8.8 Phosphorus 3.3 Magnesium 1.9 Total Bilirubin 1.1 AST 26 ALT 41 Alkaline Phosphatase 110 Total Protein 7.5 Albumin 3.4 L Urine Color YELLOW Urine Appearance CLEAR Urine pH 5.0 Ur Specific [place] 1.050 Urine Protein NEGATIVE Urine Glucose (UA) NEGATIVE Urine Ketones 80 H Urine Blood SMALL H Urine Nitrite NEGATIVE Ur Leukocyte Esterase NEGATIVE Urine WBC (Auto) 1 Urine RBC (Auto) 1 Impressions: Abdomen/Pelvis CT 11/05/16 00:00 IMPRESSION: Edema and subcutaneous soft tissues and central peritoneal, expected sequelae from recent surgery. Bilateral pneumonia. Chest X-Ray 11/05/16 07:32 IMPRESSION: Basilar opacities. Assessment & Plan - Diagnosis (1) Incarcerated ventral hernia Is this a current diagnosis for this admission?: YesPlan: Clear liquid diet. Abdominal binder. VAC on continuous 125 mmHg suction. Ambulate, Lovenox, SCDs. (2) Hypertension Is this a current diagnosis for this admission?: YesPlan: Per medicine. (3) Pneumonia Qualifiers: Laterality: bilateral Lung location: lower lobe of lung Is this a current diagnosis for this admission?: YesPlan: Per medicine. Appreciate their assistance. Encouraged I-S, flutter valve, deep breathe and cough and a laying and standing position.
[2016-11-05 23:15] LABS: HEMATOCRIT 40.9 % (37.9-51.0); HEMOGLOBIN 13.4 g/dL (13.5-17.0); HGB HCT DIFFERENCE -0.7; MEAN CORPUSCULAR HEMOGLOBIN 27.5 pg (27.0-33.4); MEAN CORPUSCULAR HGB CONC 32.9 g/dL (32.0-36.0); MEAN CORPUSCULAR VOLUME 84 fl (80-97); RED BLOOD COUNT 4.88 10^6/uL (4.35-5.55); RED CELL DISTRIBUTION WIDTH 13.3 % (11.5-14.0)
[2016-11-06] MEDS: MORPHINE SULFATE 10 MG/ML INJ IV PRN ×5 (01:51→22:22)
[2016-11-06] MEDS: RINGERS SOLUTION,LACTATED 1,000 ML IV PRN ×2 (03:39→07:57)
[2016-11-06] MEDS ORDERED: NORMAL SALINE 1000 ML 1,000 ML IV ONE (06:30)
[2016-11-06] MEDS: ENOXAPARIN SODIUM INJ 40 MG/0.4 ML DISP.SYRIN SUBCUT SCH (08:59)
[2016-11-06] MEDS: PANTOPRAZOLE SODIUM 40 MG VIAL IV SCH ×2 (09:02→21:20)
[2016-11-06] MEDS: LINEZOLID 300 ML IV SCH ×2 (09:02→21:20)
[2016-11-06] MEDS ORDERED: HYDRALAZINE HCL INJ/PF 20 MG/1 ML SDV IV PRN (09:28)
[2016-11-06] MEDS: METOPROLOL TARTRATE 25 MG TABLET PO SCH ×2 (10:33→21:19)
--- NOTE | 2016-11-06 12:01 | PDOC PROGRESS REPORT ---
Subjective Progress Note for:: 11/06/16 Subjective:: Patient complains of a productive cough. Physical Exam Vital Signs: Temp Pulse Resp BP Pulse Ox 97.4 F 86 16 164/94 H 93 11/06/16 08:01 11/06/16 08:01 11/06/16 08:01 11/06/16 08:01 11/06/16 08:01 Intake & Output 11/05/16 11/06/16 11/07/16 06:59 06:59 06:59 Intake Total 2309 3564 Output Total 1725 850 Balance 584 2714 Weight 154.5 kg 157.3 kg General appearance: PRESENT: no acute distress Eye exam: PRESENT: conjunctiva pink. ABSENT: scleral icterus Mouth exam: PRESENT: moist, tongue midline Neck exam: ABSENT: JVD Respiratory exam: PRESENT: clear to auscultation cecilia. ABSENT: rales, rhonchi, wheezes Cardiovascular exam: PRESENT: RRR. ABSENT: diastolic murmur, rubs, systolic murmur GI/Abdominal exam: PRESENT: other - Wound VAC in place in the midline. Extremities exam: ABSENT: calf tenderness, clubbing, pedal edema Neurological exam: PRESENT: alert, awake, oriented to person, oriented to place , oriented to time, oriented to situation Psychiatric exam: PRESENT: appropriate affect Skin exam: PRESENT: other - VAC in the abdominal midline. Results Laboratory Results: 11/05/16 23:02 11/05/16 06:21 11/05/16 11/05/16 14:30 23:02 WBC 17.0 H RBC 4.88 Hgb 13.4 L Hct 40.9 MCV 84 MCH 27.5 MCHC 32.9 RDW 13.3 Plt Count 259 Urine Color YELLOW Urine Appearance CLEAR Urine pH 5.0 Ur Specific [place] 1.050 Urine Protein NEGATIVE Urine Glucose (UA) NEGATIVE Urine Ketones 80 H Urine Blood SMALL H Urine Nitrite NEGATIVE Ur Leukocyte Esterase NEGATIVE Urine WBC (Auto) 1 Urine RBC (Auto) 1 Impressions: Abdomen/Pelvis CT 11/05/16 00:00 IMPRESSION: Edema and subcutaneous soft tissues and central peritoneal, expected sequelae from recent surgery. Bilateral pneumonia. Chest X-Ray 11/05/16 07:32 IMPRESSION: Basilar opacities. Assessment & Plan - Diagnosis (1) Pneumonia Qualifiers: Laterality: bilateral Lung location: lower lobe of lung Is this a current diagnosis for this admission?: YesPlan: The patient has bilateral pneumonia found on CT scan done of the abdomen. Continue with Levaquin and Zyvox. He is encouraged to try to ambulate as much as possible. (2) Incarcerated ventral hernia Is this a current diagnosis for this admission?: YesPlan: Patient has had surgical repair of this. (3) Hypertension Is this a current diagnosis for this admission?: YesPlan: We'll start on Lopressor and when necessary hydralazine. - Time Time Spent with patient: 25-34 minutes - Inpatient Certification Medical Necessity: Need for IV Antibiotics
[2016-11-06] MEDS: LEVOFLOXACIN 750 MG/D5W RTU 750 MG/150 ML RTUPB IV SCH (14:05)
--- NOTE | 2016-11-06 14:22 | PDOC PROGRESS REPORT ---
Subjective Subjective:: No nausea or vomiting. Urinating okay. + Flatus. No BM. Ambulated in the room to and from the bathroom. Physical Exam Vital Signs: Temp Pulse Resp BP Pulse Ox 97.6 F 88 16 167/86 H 93 11/06/16 11:54 11/06/16 11:54 11/06/16 11:54 11/06/16 11:54 11/06/16 11:54 Intake & Output 11/05/16 11/06/16 11/07/16 06:59 06:59 06:59 Intake Total 2309 3564 462 Output Total 1725 850 650 Balance 584 2714 -188 Weight 154.5 kg 157.3 kg General appearance: PRESENT: no acute distress, morbidly obese Eye exam: PRESENT: EOMI Respiratory exam: PRESENT: clear to auscultation cecilia - Poor inspiratory effort, but clear bilaterally. Then made him demonstrate flutter valve, did fairly well. GI/Abdominal exam: PRESENT: normal bowel sounds, soft, tenderness, other - Wound VAC in place with good seal. Extremities exam: ABSENT: pedal edema - ANSELMO hose in place, tenderness Neurological exam: PRESENT: alert, oriented to situation Psychiatric exam: PRESENT: appropriate affect, normal mood Skin exam: ABSENT: jaundice Results Laboratory Results: 11/05/16 23:02 11/05/16 06:21 11/05/16 11/05/16 14:30 23:02 WBC 17.0 H RBC 4.88 Hgb 13.4 L Hct 40.9 MCV 84 MCH 27.5 MCHC 32.9 RDW 13.3 Plt Count 259 Urine Color YELLOW Urine Appearance CLEAR Urine pH 5.0 Ur Specific [place] 1.050 Urine Protein NEGATIVE Urine Glucose (UA) NEGATIVE Urine Ketones 80 H Urine Blood SMALL H Urine Nitrite NEGATIVE Ur Leukocyte Esterase NEGATIVE Urine WBC (Auto) 1 Urine RBC (Auto) 1 Impressions: Abdomen/Pelvis CT 11/05/16 00:00 IMPRESSION: Edema and subcutaneous soft tissues and central peritoneal, expected sequelae from recent surgery. Bilateral pneumonia. Chest X-Ray 11/05/16 07:32 IMPRESSION: Basilar opacities. Assessment & Plan - Diagnosis (1) Incarcerated ventral hernia Is this a current diagnosis for this admission?: YesPlan: Advanced to full liquid diet. Add physical therapy. VAC on continuous 125 mmHg suction. Encouraged ambulation and pulmonary toilet. Lovenox, SCDs. (2) Hypertension Is this a current diagnosis for this admission?: Yes (3) Pneumonia Qualifiers: Laterality: bilateral Lung location: lower lobe of lung Is this a current diagnosis for this admission?: Yes
[2016-11-07] MEDS: RINGERS SOLUTION,LACTATED 1,000 ML IV PRN (00:53)
[2016-11-07 04:44] LABS: ABSOLUTE EOSINOPHILS # (AUTO) 0.3 10^3/uL (0.0-0.6); ABSOLUTE LYMPHOCYTES (AUTO) 1.1 10^3/uL (0.5-4.7); ABSOLUTE MONOCYTES (AUTO) 1.4 10^3/uL (0.1-1.4); ABSOLUTE NEUT (AUTO) 10.6 10^3/uL (1.7-8.2); BASOPHILS % (AUTO) 0.3 % (0-2); EOSINOPHILS % (AUTO) 1.9 % (0-6); HEMOGLOBIN 13.1 g/dL (13.5-17.0); HGB HCT DIFFERENCE 0.3; LYMPHOCYTES % (AUTO) 8.5 % (13-45); MEAN CORPUSCULAR HGB CONC 33.7 g/dL (32.0-36.0); MEAN CORPUSCULAR VOLUME 83 fl (80-97); MONOCYTES % (AUTO) 10.3 % (3-13); RED BLOOD COUNT 4.69 10^6/uL (4.35-5.55); RED CELL DISTRIBUTION WIDTH 13.7 % (11.5-14.0); WHITE BLOOD COUNT 13.4 10^3/uL (4.0-10.5)
[2016-11-07 04:57] LABS: ANION GAP 11 (5-19); BLOOD UREA NITROGEN 13 mg/dL (7-20); CALCIUM 8.6 mg/dL (8.4-10.2); CARBON DIOXIDE 28 mmol/L (22-30); CHLORIDE 99 mmol/L (98-107); CREATININE RESULT 0.69 mg/dL (0.52-1.25); GLUCOSE 82 mg/dL (75-110); POTASSIUM 3.8 mmol/L (3.6-5.0); SODIUM 137.6 mmol/L (137-145)
[2016-11-07] MEDS: MORPHINE SULFATE 10 MG/ML INJ IV PRN ×2 (07:57→20:05)
[2016-11-07] MEDS: ENOXAPARIN SODIUM INJ 40 MG/0.4 ML DISP.SYRIN SUBCUT SCH (08:01)
[2016-11-07] MEDS: LINEZOLID 300 ML IV SCH (09:33)
[2016-11-07] MEDS: PANTOPRAZOLE SODIUM 40 MG VIAL IV SCH (09:33)
[2016-11-07] MEDS: METOPROLOL TARTRATE 25 MG TABLET PO SCH ×2 (09:33→21:22)
[2016-11-07] MEDS ORDERED: OXYCODONE-ACETAMINOPHEN 5-325 MG TABLET PO PRN (10:03)
--- NOTE | 2016-11-07 10:06 | PDOC PROGRESS REPORT ---
Subjective Progress Note for:: 11/07/16 Subjective:: Patient tolerated clear liquids; voiding; has VAC on in place with appropriate suction Physical Exam Vital Signs: Temp Pulse Resp BP Pulse Ox 98.4 F 94 18 172/90 H 97 11/07/16 07:43 11/07/16 07:43 11/07/16 07:43 11/07/16 07:43 11/07/16 07:43 Intake & Output 11/06/16 11/07/16 11/08/16 06:59 06:59 06:59 Intake Total 3564 3936 Output Total 850 2025 Balance 2714 1911 Weight 157.3 kg 156.9 kg General appearance: PRESENT: no acute distress GI/Abdominal exam: PRESENT: other - Abdomen soft, nontender; drain with serosanguineous sero-sanguinous material; VAC sponge somewhat small compared to cavity size. Results Laboratory Results: 11/07/16 03:57 11/07/16 03:57 11/07/16 11/07/16 03:57 03:57 WBC 13.4 H RBC 4.69 Hgb 13.1 L Hct 39.0 MCV 83 MCH 28.0 MCHC 33.7 RDW 13.7 Plt Count 246 Seg Neutrophils % 79.0 H Lymphocytes % 8.5 L Monocytes % 10.3 Eosinophils % 1.9 Basophils % 0.3 Absolute Neutrophils 10.6 H Absolute Lymphocytes 1.1 Absolute Monocytes 1.4 Absolute Eosinophils 0.3 Absolute Basophils 0.0 Sodium 137.6 Potassium 3.8 Chloride 99 Carbon Dioxide 28 Anion Gap 11 BUN 13 Creatinine 0.69 Est GFR ( Amer) > 60 Est GFR (Non-Af Amer) > 60 Glucose 82 Calcium 8.6 Impressions: Abdomen/Pelvis CT 11/05/16 00:00 IMPRESSION: Edema and subcutaneous soft tissues and central peritoneal, expected sequelae from recent surgery. Bilateral pneumonia. Chest X-Ray 11/05/16 07:32 IMPRESSION: Basilar opacities. Assessment & Plan - Diagnosis (1) Incarcerated ventral hernia Is this a current diagnosis for this admission?: YesPlan: 1. 4 days status post abdominal wall exploration, small bowel resection, fascial closure primarily with VAC application Alejandrina doing reasonably well, without gastrointestinal complications S4. 2. Plan for today: Advance diet, decrease IV fluids, increase ambulation 3. Can activate charge planning to facilitate outpatient VAC therapy, and follow[facility] with [facility].
--- NOTE | 2016-11-07 10:37 | PDOC PROGRESS REPORT ---
Subjective Progress Note for:: 11/07/16 Subjective:: Patient complains of a productive cough. Physical Exam Vital Signs: Temp Pulse Resp BP Pulse Ox 98.4 F 94 18 172/90 H 97 11/07/16 07:43 11/07/16 07:43 11/07/16 07:43 11/07/16 07:43 11/07/16 07:43 Intake & Output 11/06/16 11/07/16 11/08/16 06:59 06:59 06:59 Intake Total 3564 3936 Output Total 850 2025 Balance 2714 1911 Weight 157.3 kg 156.9 kg General appearance: PRESENT: no acute distress Eye exam: PRESENT: conjunctiva pink. ABSENT: scleral icterus Mouth exam: PRESENT: moist, tongue midline Neck exam: ABSENT: JVD Respiratory exam: PRESENT: clear to auscultation cecilia. ABSENT: rales, rhonchi, wheezes Cardiovascular exam: PRESENT: RRR. ABSENT: diastolic murmur, rubs, systolic murmur GI/Abdominal exam: PRESENT: other - Wound VAC in place in the midline Extremities exam: ABSENT: calf tenderness, clubbing, pedal edema Neurological exam: PRESENT: alert, awake, oriented to person, oriented to place , oriented to time, oriented to situation Psychiatric exam: PRESENT: appropriate affect Skin exam: PRESENT: other Results Laboratory Results: 11/07/16 03:57 11/07/16 03:57 11/07/16 11/07/16 03:57 03:57 WBC 13.4 H RBC 4.69 Hgb 13.1 L Hct 39.0 MCV 83 MCH 28.0 MCHC 33.7 RDW 13.7 Plt Count 246 Seg Neutrophils % 79.0 H Lymphocytes % 8.5 L Monocytes % 10.3 Eosinophils % 1.9 Basophils % 0.3 Absolute Neutrophils 10.6 H Absolute Lymphocytes 1.1 Absolute Monocytes 1.4 Absolute Eosinophils 0.3 Absolute Basophils 0.0 Sodium 137.6 Potassium 3.8 Chloride 99 Carbon Dioxide 28 Anion Gap 11 BUN 13 Creatinine 0.69 Est GFR ( Amer) > 60 Est GFR (Non-Af Amer) > 60 Glucose 82 Calcium 8.6 Impressions: Abdomen/Pelvis CT 11/05/16 00:00 IMPRESSION: Edema and subcutaneous soft tissues and central peritoneal, expected sequelae from recent surgery. Bilateral pneumonia. Chest X-Ray 11/05/16 07:32 IMPRESSION: Basilar opacities. Assessment & Plan - Diagnosis (1) Pneumonia Qualifiers: Laterality: bilateral Lung location: lower lobe of lung Is this a current diagnosis for this admission?: YesPlan: The patient has bilateral pneumonia found on CT scan done of the abdomen. Continue with Levaquin and Zyvox. The patient is doing well on room air with no hypoxia. He is taking by mouth at this time and we can switch his Levaquin and Zyvox to by mouth. Would recommend that he had a total of 5 days of Levaquin and 7 days of Zyvox. He can be discharged home any time from medical standpoint when he is cleared from surgery. The hospitalist service will sign off at this time. If you have any further questions please feel free to call. (2) Incarcerated ventral hernia Is this a current diagnosis for this admission?: YesPlan: Patient has had surgical repair of this. (3) Hypertension Is this a current diagnosis for this admission?: YesPlan: We'll start on Lopressor and when necessary hydralazine. - Time Time Spent with patient: 15-24 minutes - Inpatient Certification Medical Necessity: Need Close Monitoring Due to Risk of Patient Decompensation - Plan Summary Plan Summary: The hospitalist service will sign off. Please call if any further questions.
[2016-11-07] MEDS ORDERED: LEVOFLOXACIN 750 MG TABLET PO ONE (11:30)
[2016-11-07] MEDS: LANSOPRAZOLE 30 MG TAB.RAP.DR PO SCH (17:20)
[2016-11-07] MEDS: LINEZOLID 600 MG TABLET PO SCH (21:21)
[2016-11-07] MEDS: ONDANSETRON HCL INJ/PF 4 MG/2 ML SDV IV PRN (22:48)
[2016-11-08] MEDS: MORPHINE SULFATE 10 MG/ML INJ IV PRN ×4 (05:25→22:24)
[2016-11-08] MEDS: LANSOPRAZOLE 30 MG TAB.RAP.DR PO SCH ×2 (05:25→17:08)
[2016-11-08] MEDS: ENOXAPARIN SODIUM INJ 40 MG/0.4 ML DISP.SYRIN SUBCUT SCH (09:24)
[2016-11-08] MEDS: LINEZOLID 600 MG TABLET PO SCH ×2 (09:25→21:06)
[2016-11-08] MEDS: LEVOFLOXACIN 750 MG TABLET PO SCH (09:25)
[2016-11-08] MEDS: METOPROLOL TARTRATE 25 MG TABLET PO SCH (09:25)
--- NOTE | 2016-11-08 12:30 | PDOC PROGRESS REPORT ---
Subjective Progress Note for:: 11/08/16 Subjective:: Patient tolerated clear liquids; voiding; has VAC on in place with appropriate suction; patient has not moving very much since surgery nor has he taken a shower Physical Exam Vital Signs: Temp Pulse Resp BP Pulse Ox 99.3 F 81 19 171/95 H 94 11/08/16 08:18 11/08/16 08:18 11/08/16 08:18 11/08/16 08:18 11/08/16 08:18 Intake & Output 11/07/16 11/08/16 11/09/16 06:59 06:59 06:59 Intake Total 3936 2650 Output Total 2024 3850 Balance 1911 -1200 Weight 156.9 kg 157.2 kg General appearance: PRESENT: no acute distress GI/Abdominal exam: PRESENT: other - Surgeon is packed open with a wound VAC to suction Results Laboratory Results: 11/07/16 03:57 11/07/16 03:57 Impressions: Abdomen/Pelvis CT 11/05/16 00:00 IMPRESSION: Edema and subcutaneous soft tissues and central peritoneal, expected sequelae from recent surgery. Bilateral pneumonia. Chest X-Ray 11/05/16 07:32 IMPRESSION: Basilar opacities. Assessment & Plan - Diagnosis (1) Incarcerated ventral hernia Is this a current diagnosis for this admission?: YesPlan: 1. The patient will have wound VAC change today. We are hoping to get this arranged as an outpatient patient basis. 2. Patient needs to get in the shower and move. 3. He remains on by mouth antibiotics and these should be weaned off - Time Time Spent with patient: 15-24 minutes
[2016-11-08] MEDS ORDERED: METOPROLOL TARTRATE 25 MG TABLET PO SCH (16:17)
--- NOTE | 2016-11-08 16:23 | PDOC PROGRESS REPORT ---
Subjective Progress Note for:: 11/08/16 Subjective:: Patient able to tolerate some oral intake. Still with some nausea. No vomiting. Positive flattus. No bowel movement yet. No shortness of breath or chest pain. No diarrhea chills or fever or shortness of breath. Physical Exam Vital Signs: Temp Pulse Resp BP Pulse Ox 98.9 F 82 19 160/100 H 92 11/08/16 12:09 11/08/16 12:09 11/08/16 12:09 11/08/16 12:09 11/08/16 12:09 Intake & Output 11/07/16 11/08/16 11/09/16 06:59 06:59 06:59 Intake Total 3936 2650 221 Output Total 2024 3850 500 Balance 1911 -1200 -538 Weight 156.9 kg 157.2 kg General appearance: PRESENT: no acute distress, cooperative, morbidly obese Head exam: PRESENT: normocephalic Eye exam: PRESENT: EOMI Mouth exam: PRESENT: moist, neck supple Neck exam: ABSENT: JVD Respiratory exam: PRESENT: clear to auscultation cecilia. ABSENT: rhonchi, wheezes Cardiovascular exam: PRESENT: RRR. ABSENT: gallop GI/Abdominal exam: PRESENT: hypoactive bowel sounds, soft Neurological exam: PRESENT: alert, awake, oriented to situation Skin exam: PRESENT: dry, warm. ABSENT: cyanosis Results Laboratory Results: 11/07/16 03:57 11/07/16 03:57 Impressions: Abdomen/Pelvis CT 11/05/16 00:00 IMPRESSION: Edema and subcutaneous soft tissues and central peritoneal, expected sequelae from recent surgery. Bilateral pneumonia. Chest X-Ray 11/05/16 07:32 IMPRESSION: Basilar opacities. Assessment & Plan - Diagnosis (1) Hypertension Qualifiers: Hypertension type: essential hypertension Qualified Code(s): I10 - Essential (primary) hypertension Is this a current diagnosis for this admission?: Yes (2) Incarcerated ventral hernia Is this a current diagnosis for this admission?: Yes (3) Pneumonia Qualifiers: Pneumonia type: due to unspecified organism Laterality: bilateral Lung location: lower lobe of lung Qualified Code(s): J18.9 - Pneumonia, unspecified organism Is this a current diagnosis for this admission?: Yes - Time Time Spent with patient: 25-34 minutes - Plan Summary Plan Summary: We are going to decrease intravenous fluids. Increase metoprolol. Continue other medication and supportive care. Recommendations per Dr. Puckett, continue Zyvox for 6 more days and Levaquin for 4 more days. We will sign off from the case. Please reconsult us as needed. Thank you so much for letting us participate in his care.
[2016-11-08] MEDS: RINGERS SOLUTION,LACTATED 1,000 ML IV PRN (16:27)
[2016-11-08] MEDS: METOPROLOL TARTRATE 50 MG TABLET PO SCH (21:05)
[2016-11-08] MEDS: ONDANSETRON HCL INJ/PF 4 MG/2 ML SDV IV PRN (22:24)
[2016-11-09] MEDS: LANSOPRAZOLE 30 MG TAB.RAP.DR PO SCH (05:11)
[2016-11-09] MEDS: ENOXAPARIN SODIUM INJ 40 MG/0.4 ML DISP.SYRIN SUBCUT SCH (08:55)
[2016-11-09] MEDS: LEVOFLOXACIN 750 MG TABLET PO SCH (09:41)
[2016-11-09] MEDS: METOPROLOL TARTRATE 50 MG TABLET PO SCH (09:41)
[2016-11-09] MEDS: LINEZOLID 600 MG TABLET PO SCH (09:41)
--- NOTE | 2016-11-09 10:26 | PDOC DISCHARGE SUMMARY ---
Discharge Summary (SDC) - Discharge Final Diagnosis: Incarcerated ventral hernia Date of Surgery: 11/03/16 Discharge Date: 11/09/16 Condition: Stable Treatment or Instructions: [facility] [address], [place] [address] Discharge Instructions: Open Abdominal Procedures (Hernia, Bowel Surgery) 1.General Information: a. DO NOT DRIVE a car or operative machinery for 1-2 weeks or as long as taking Narcotic pain medication. b. DO NOT consume alcohol, tranquilizers, sleeping medication, or any non- prescribed medication for 24 hours unless approved by your doctor or as long as taking pain medication. c. DO NOT make important decisions or sign any important papers for the first 24 hours after surgery. d. When discharged home the same day as surgery have a responsible person with you the first night. 2.Activity Restriction:8 weeks; a. Avoid heavy lifting (> 10-15 lbs), straining abdominal muscles and sports, mowing lawn, vacuum conduit cleaner and bending over a lot. b. Walking is important to avoid blood clots in the legs and deep breathing can prevent pneumonia. c. If it fine to go for walks, up and down steps, and ride in a car. 3.Treatment: a. You may remove dressing or Band-Aids the day after surgery and shower then daily is fine, but you should not bathe in a tub or go swimming for 2 weeks. b. If you have paper strips (steri strips) on the skin, do not remove them as they will fall off in the coming weeks. Pat them dry after your shower. Sutures beneath the paper strips dissolve. If you have skin sutures or metal maurizio they will be removed on your follow up visit. They may also get wet with a shower. c. Do not use oils, powders, or lotion on your incision. 4.Medications: a. You may take narcotic prescription tablets for pain if needed, one every 4 hours (___Percocet__). b. Stop the narcotic when able since you cannot take it and drive and they cause constipation. You may switch to plain Tylenol, Advil, or Aleve as you transition from the narcotic. Many adults find good pain relief with Advil 600-800 mg three times a day with meal to work well and avoid narcotic use. High dose Advil should only be used for short courses since it can cause indigestion, ulcer bleeding in the stomach and kidney problems. c. You may resume all normal medications unless a change is specified by your doctors. d. Antibiotic Therapy if needed - Levaquin and Zyvox___ 5.Diet: a. If going home the same day as surgery start with clear liquids, and if you do well then advance to normal foods low inf fat and protein. Smaller portion size may be bolanos the first night. b. When discharged after hospital stay you may resume a normal diet. 6.Notify Physician If: a. Pain is not relieved by pain medication b. Persistent nausea and vomiting c. Chills, fever (above 101) d. Persistent bleeding or swelling at the operative site e. Unable to urinate for 6-8 hours f. Increased redness, drainage, or foul smelling discharge from incision 7. Follow Up Care: a. Please call our office to schedule an appointment with your doctor for 2 weeks. In the event of any postoperative problems or questions you may call our office during business hours or the On-Call surgeon through the slusher operator at [facility]. [facility] [phone] (Ask for the surgeon migration agent) b. I understand the instructions for my postoperative care as described above and a copy has been given to me. _ Witness Patient/Significant Other Date Prescriptions: Levofloxacin [Levaquin 750 mg Tablet] 750 mg PO DAILY #4 tablet Linezolid [Zyvox 600 mg Tablet] 600 mg PO Q12 #12 tablet Oxycodone HCl/Acetaminophen [Percocet 5-325 mg Tablet] 1 tab PO ASDIR PRN #25 tab PRN Reason: Discharge Diet: As Tolerated Discharge Activity: No Lifting Over 10 Pounds, No Lifting/Push/Pulling Report the Following to Your Physician Immediately: Increase in Pain, Fever over 101 Degrees, Redness, Swelling, Warmth, Increased Soreness, Drainage-Foul Smelling
[2016-11-09 13:13] VITALS: BP 157/78
--- NOTE | 2016-11-17 08:13 | DISCHARGE SUMMARY E ---
Discharge Summary NAME: JIAN SEYMOUR : 1975 AGE: 41Y ADMITTED: 11/03/2016 DISCHARGED: 11/09/2016 SUMMARY OF HOSPITALIZATION: The patient is a 41-year-old white male who presents to the emergency department complaining of abdominal pain at the umbilicus. He was found to have an incarcerated hernia on physical examination. Surgery was consulted. He was advised admission and definitive management. The patient was taken to the operating room by Dr. Mohamud where he underwent reduction of incarcerated umbilical hernia, small bowel resection of ischemic intestine, and primary closure of fascia with open skin. The patient was managed with a wound V.A.C. postoperatively. He had resumption of his bowel function slowly; however, he eventually tolerated diet and this was advanced. His wound began to heal by secondary intention. Internal medicine was involved in his medical management. There were no postoperative complications. By the sixth postoperative day, he was felt to be ready for discharge home. Of note, the patient did develop bibasilar pneumonia, although this may have been primarily atelectasis due to suboptimal pulmonary toilet. FINAL DIAGNOSES: 1. Incarcerated umbilical hernia with strangulated small bowel status post exploratory laparotomy, small bowel resection and repair of incarcerated hernia, Dr. Mohamud. 2. Bibasilar pneumonia, resolving. DISPOSITION: The patient will be discharged home to the care of his family. Follow up with Dr. Mohamud or an front desk representative from [facility] in approximately 1 week. He will be discharged home with his wound V.A.C., p.o. antibiotics. He will also receive a prescription for pain medication. DICTATING PHYSICIAN: CRISSY RIOS M.D. [id number] PHY#: [id number] ID: [id number] JOB#: [id number] ACCT: [id number] cc:CRISSY RIOS M.D. >
== END 2016-11-09 14:45 | disposition home or self-care (01) | DRG 329 ==
LOC: ER 18:41 → EH 21:32 → UNDOADMIN 21:32 → EH 11-03 00:43 → UNDOADMIN 11-03 01:18 → 3N 11-03 15:39
PROVIDERS: ADMIT Internal Medicine; ATTEND Internal Medicine
PROC: 0DBA0ZZ Excision of Jejunum, Open Approach (ICD-10-PCS; principal; 2016-11-03)
PROC: 0WQF0ZZ Repair Abdominal Wall, Open Approach (ICD-10-PCS; 2016-11-03)
PROC: 0DBB0ZZ Excision of Ileum, Open Approach (ICD-10-PCS; 2016-11-03)
DX: K43.0 Incisional hernia with obstruction, without gangrene (principal); J18.9 Pneumonia, unspecified organism; K55.8 Other vascular disorders of intestine; Z68.42 Body mass index [BMI] 45.0-49.9, adult; E66.01 Morbid (severe) obesity due to excess calories; I10 Essential (primary) hypertension; F17.210 Nicotine dependence, cigarettes, uncomplicated; Z88.0 Allergy status to penicillin; Z82.49 Family history of ischemic heart disease and other diseases of the circulatory system; Z90.49 Acquired absence of other specified parts of digestive tract; Z83.3 Family history of diabetes mellitus
CPT/HCPCS: 00752; 36415; 71010; 71020; 74177; 80048; 80053; 81001; 82550; 82553; 83690; 83735; 84100; 84478; 84484; 85025; 85027; 87040; 88302; 88305; 93005; 93010; 94002; 94668; 94799; 96361; 96374; 99285; J0131; J0360; J1170; J1650; J1956; J2020; J2250; J2270; J2405; J2704; J3010; J3490; J7030; J7120; S0164

== ENCOUNTER 2018-03-20 11:36 | Emergency (ER) | payer BC ==
--- NOTE | 2018-03-20 13:22 | ER Document Report ---
Addendum entered and electronically signed by MINISTERIO MANCERA 03/20/18 13:37: Course - Re-evaluation Re-evalutation: 03/20/18 13:35 Patient is a 43-year-old male who presents to the emergency department today with complaints of chest pain off and on for 2 weeks with associated left-sided facial numbness. Patient states that the chest pain is intermittent and sharp. Patient states it increase intensity today that is why he decided to come in to be evaluated. Patient has had associated shortness of breath and dizziness. Patient denies any cough, congestion, history of MD/CVA, or a stress test in the past. I have greeted and performed a rapid initial assessment of this patient. A comprehensive ED assessment and evaluation of the patient, analysis of test results, and completion of the medical decision making process will be conducted by additional ED providers. Review of systems: Positive for chest pain, shortness of breath, dizziness. Negative for cough or congestion. Physical Exam: General: Alert, appears well. HEENT: Normocephalic. Atraumatic. PERRLA. Extraocular movements intact. Oropharynx clear. Neck: Supple. Respiratory: No respiratory distress. Clear and equal breath sounds bilaterally. Cardiovascular: regular rate and rhythm. Abdominal: Normal Inspection. No distension. Extremities: Moves all four extremities. Neurological: Normal cognition. AAOx4. Normal speech. Psychological: Normal affect. Normal Mood. Skin: Warm. Dry. Normal color. - Vital Signs Vital signs: Temp Pulse Resp BP Pulse Ox 97.9 F 91 20 175/101 H 96 03/20/18 11:55 03/20/18 11:55 03/20/18 11:55 03/20/18 11:55 03/20/18 11:55 Scribe Documentation - Scribe Written by Charissee:: Darien Hammonds, 03/20/2018 [id number] acting as scribe for :: Josiah Original Note: ED Cardiac - General TRAVEL OUTSIDE OF THE [place] IN LAST 30 DAYS: No <MINISTERIO MANCERA - Last Filed: 03/20/18 13:35> <JV LIGHT - Last Filed: 03/24/18 14:57> - General Chief Complaint: Chest Pain Stated Complaint: CHEST PAIN Time Seen by Provider: 03/20/18 13:01 - Related Data Allergies/Adverse Reactions: Penicillins Allergy (Verified 05/12/15 14:14) Past Medical History - Social History Smoking Status: Never Smoker Chew tobacco use (# tins/day): No Frequency of alcohol use: Every day Family History: Hypertension Patient has suicidal ideation: No Patient has homicidal ideation: No - Past Medical History Cardiac Medical History: Reports: Hx Hypertension - Noncompliant with medicaiton Denies: Hx Atrial Fibrillation, Hx Congestive Heart Failure, Hx DVT, Hx Heart Attack Renal/ Medical History: Denies: Hx Peritoneal Dialysis Past Surgical History: Reports: Hx Cholecystectomy - Immunizations Immunizations up to date: Yes Hx Diphtheria, Pertussis, Tetanus Vaccination: Yes - 2011 <MINISTERIO MANCERA - Last Filed: 03/20/18 13:35> - Vital signs Vitals: Temp Pulse Resp BP Pulse Ox 97.9 F 91 20 175/101 H 96 03/20/18 11:55 03/20/18 11:55 03/20/18 11:55 03/20/18 11:55 03/20/18 11:55 Course - Laboratory Result Diagrams: 03/20/18 13:49 03/20/18 14:50 <JV LIGHT - Last Filed: 03/24/18 14:57> - Vital Signs Vital signs: Temp Pulse Resp BP Pulse Ox 98.0 F 72 18 172/105 H 98 03/20/18 18:24 03/20/18 18:24 03/20/18 18:24 03/20/18 18:24 03/20/18 18:24 - Laboratory Laboratory results interpreted by me: 03/20/18 13:49 WBC 12.6 H Absolute Neutrophils 8.9 H Discharge <MINISTERIO MANCERA - Last Filed: 03/20/18 13:35> <JV LIGHT - Last Filed: 03/24/18 14:57> - Discharge Clinical Impression: Chest wall pain, Facial paresthesia Hypertension Qualifiers: Hypertension type: unspecified Qualified Code(s): I10 - Essential (primary) hypertension Condition: Good Disposition: HOME, SELF-CARE Instructions: Chest Wall Pain ([facility]), Chest Pain of Unclear Cause ([facility]), Edema, Peripheral ([facility]), Family Physicians / Practices, Hydrochlorothiazide ([facility]) Additional Instructions: Your evaluated today for elevated blood pressure and chest pain paresthesias in the face and swelling to her legs. Laboratory studies EKG chest x-ray did not show any critical pathology. Your chest x-ray does show a some enlargement of your heart that is very mild that is more likely due to underlying uncontrolled high blood pressure. This also probably the cause of the swelling of your legs. I highly recommend that we start you on a blood pressure medication, hydrochlorothiazide and that you follow-up with a primary care physician. I do not see any signs of cardiac ischemia no signs of heart attack no signs of stroke on your examination or workup today. Please return to ER if any symptoms worsen Prescriptions: Hydrochlorothiazide 25 mg PO DAILY #30 tablet Forms: Elevated Blood Pressure, Return to Work Referrals: CRISSY RIOS MD [ACTIVE STAFF] - Follow up as needed Scribe Attestation: 03/24/18 14:57 I personally performed the services described documentation, reviewed and edited the documentation which was dictated to describe my presence, and it accurately records my words and actions. (JV LIGHT)
[2018-03-20 14:12] LABS: ABSOLUTE BASOPHILS # (AUTO) 0.1 10^3/uL (0.0-0.2); ABSOLUTE EOSINOPHILS # (AUTO) 0.4 10^3/uL (0.0-0.6); ABSOLUTE LYMPHOCYTES (AUTO) 2.2 10^3/uL (0.5-4.7); ABSOLUTE NEUT (AUTO) 8.9 10^3/uL (1.7-8.2); BASOPHILS % (AUTO) 0.6 % (0-2); EOSINOPHILS % (AUTO) 2.8 % (0-6); HEMATOCRIT 44.1 % (37.9-51.0); HEMOGLOBIN 14.7 g/dL (13.5-17.0); LYMPHOCYTES % (AUTO) 17.6 % (13-45); MEAN CORPUSCULAR HEMOGLOBIN 27.6 pg (27.0-33.4); MEAN CORPUSCULAR HGB CONC 33.4 g/dL (32.0-36.0); MEAN CORPUSCULAR VOLUME 83 fl (80-97); MONOCYTES % (AUTO) 8.1 % (3-13); RED BLOOD COUNT 5.34 10^6/uL (4.35-5.55); SEGMENTED NEUTROPHILS % (AUTO) 70.9 % (42-78); TOTAL CELLS COUNTED % (AUTO) 100 %; WHITE BLOOD COUNT 12.6 10^3/uL (4.0-10.5)
[2018-03-20 14:36] LABS: PLATELET COUNT 236 10^3/uL (150-450)
--- NOTE | 2018-03-20 14:56 | EKG REPORT ---
SEVERITY:- BORDERLINE ECG - SINUS RHYTHM BORDERLINE PROLONGED QT INTERVAL : Confirmed by: Adriana Thorne 20-Mar-2018 14:54:28
[2018-03-20 15:17] LABS: INTERNATIONAL RATION (INR) 1.03
--- NOTE | 2018-03-20 15:18 | RADIOLOGY REPORT (SQ) ---
EXAM DESCRIPTION: CHEST SINGLE VIEW COMPLETED DATE/TIME: 03/20/2018 3:09 pm REASON FOR STUDY: chest pain COMPARISON: 11/05/2016 EXAM PARAMETERS: NUMBER OF VIEWS: One view. TECHNIQUE: Single frontal radiographic view of the chest acquired. RADIATION DOSE: NA LIMITATIONS: None. FINDINGS: LUNGS AND PLEURA: No opacities, masses or pneumothorax. No pleural effusion. MEDIASTINUM AND HILAR STRUCTURES: No masses. Contour normal. HEART AND VASCULAR STRUCTURES: Heart size is borderline. No evidence of failure. BONES: No acute findings. HARDWARE: None in the chest. OTHER: No other significant finding. IMPRESSION: Borderline cardiomegaly without failure. TECHNICAL DOCUMENTATION: JOB ID: [id number] [employer] All Rights Reserved Reading location - IP/workstation name: [email or web address]
[2018-03-20 15:31] LABS: ALANINE AMINOTRANSFERASE 34 U/L (21-72); ALBUMIN 4.3 g/dL (3.5-5.0); ALKALINE PHOSPHATASE 99 U/L (38-126); ANION GAP 11 (5-19); ASPARTATE AMINO TRANSFERASE 32 U/L (17-59); BILIRUBIN,DIRECT 0.3 mg/dL (0.0-0.4); BILIRUBIN,TOTAL 0.8 mg/dL (0.2-1.3); BLOOD UREA NITROGEN 16 mg/dL (7-20); CALCIUM 9.1 mg/dL (8.4-10.2); CARBON DIOXIDE 25 mmol/L (22-30); CHLORIDE 107 mmol/L (98-107); GLUCOSE 76 mg/dL (75-110); SODIUM 143.4 mmol/L (137-145); TOTAL PROTEIN 7.8 g/dL (6.3-8.2)
[2018-03-20] MEDS ORDERED: NORMAL SALINE 1000 ML 1,000 ML IV ONE (15:36)
[2018-03-20] MEDS ORDERED: HYDROCHLOROTHIAZIDE 25 MG TABLET PO ONE (17:39)
--- NOTE | 2018-03-20 17:46 | ER Document Report ---
ED General - General Chief Complaint: Chest Pain Stated Complaint: CHEST PAIN Time Seen by Provider: 03/20/18 13:01 TRAVEL OUTSIDE OF THE U.S. IN LAST 30 DAYS: No - HPI Patient complains to provider of: Intermittent chest pain left facial numbness Notes: Patient states above-stated symptoms ongoing for over 2 weeks along with some swelling in his legs. Patient does have a diagnosis of hypertension is prescribed metoprolol however has not been taking the medication because it makes him urinate. Patient denies any recent travel denies any fevers chills nausea vomiting diarrhea. Patient resting comfortably upon my evaluation states intermittent left-sided chest pain however currently chest pain-free. Patient other than hypertension denies any other past medical history. Patient does not have any PCP although the patient does have [employer] insurance. Patient states the pain is worsened whenever he does any kind of movement lifting or walking. Patient states no pain at rest. Patient also states bilateral leg swelling however her legs are not painful - Related Data Allergies/Adverse Reactions: Penicillins Allergy (Verified 05/12/15 14:14) Past Medical History - Social History Smoking Status: Never Smoker Chew tobacco use (# tins/day): No Frequency of alcohol use: Every day Family History: Hypertension Patient has suicidal ideation: No Patient has homicidal ideation: No - Past Medical History Cardiac Medical History: Reports: Hx Hypertension - Noncompliant with medicaiton Denies: Hx Atrial Fibrillation, Hx Congestive Heart Failure, Hx DVT, Hx Heart Attack Renal/ Medical History: Denies: Hx Peritoneal Dialysis Past Surgical History: Reports: Hx Cholecystectomy - Immunizations Immunizations up to date: Yes Hx Diphtheria, Pertussis, Tetanus Vaccination: Yes - 2011 Review of Systems - Review of Systems Constitutional: No symptoms reported EENT: No symptoms reported Cardiovascular: Chest pain, Edema, Other - Hypertension Respiratory: No symptoms reported Gastrointestinal: No symptoms reported Genitourinary: No symptoms reported Male Genitourinary: No symptoms reported Musculoskeletal: No symptoms reported Skin: No symptoms reported Hematologic/Lymphatic: No symptoms reported Neurological/Psychological: No symptoms reported -: Yes All other systems reviewed and negative Physical Exam - Vital signs Vitals: Temp Pulse Resp BP Pulse Ox 97.9 F 91 20 175/101 H 96 03/20/18 11:55 03/20/18 11:55 03/20/18 11:55 03/20/18 11:55 03/20/18 11:55 Interpretation: Normal - General General appearance: Appears well, Alert - HEENT Head: Normocephalic, Atraumatic Eyes: Normal Pupils: PERRL - Respiratory Respiratory status: No respiratory distress Chest status: Nontender Breath sounds: Normal Chest palpation: Normal - Cardiovascular Rhythm: Regular Heart sounds: Normal auscultation Murmur: No - Abdominal Inspection: Normal Distension: No distension Bowel sounds: Normal Tenderness: Nontender Organomegaly: No organomegaly - Back Back: Normal, Nontender - Extremities General upper extremity: Normal inspection, Nontender, Normal color, Normal ROM , Normal temperature General lower extremity: Normal inspection, Nontender, Edema - 1-2+ pitting edema bilaterally, Normal color, Normal ROM, Normal temperature, Normal weight bearing. No: Fermin's sign - Neurological Neuro grossly intact: Yes Cognition: Normal Orientation: AAOx4 [place] Coma Scale Eye Opening: Spontaneous [place] Coma Scale Verbal: Oriented [place] Coma Scale Motor: Obeys Commands [place] Coma Scale Total: 15 Speech: Normal Cranial nerves: Normal Cerebellar coordination: Normal Motor strength normal: LUE, RUE, LLE, RLE Sensory: Normal, Other - Light sensation in all 3 distribution of the facial nerve are intact facial movements are also intact - Psychological Associated symptoms: Normal affect, Normal mood - Skin Skin Temperature: Warm Skin Moisture: Dry Skin Color: Normal Course - Re-evaluation Re-evalutation: 03/20/18 22:33 Chest x-ray shows slight cardiomegaly more likely due to the patient's uncontrolled hypertension. Patient because of the edema in his legs and this interest in taking his metoprolol will start patient on hydrochlorothiazide. Highly recommend patient follow-up for further evaluation of his blood pressure otherwise laboratory studies not show any significant pathology. Patient also complains of paresthesias in the face has normal facial movements no signs of Thompson palsy however he also is continues to have light touch sensation on evaluation no clear etiology patient encouraged follow-up The patient has atypical chest pain as the patient's chest pain is not suggestive of pulmonary embolus, cardiac ischemia, aortic dissection, or other serious etiology. Given the extremely low risk of these diagnoses further testing and evaluation for these possibilities does not appear to be indicated at this time. The patient has been instructed to return if the symptoms worsen or change in any way. - Vital Signs Vital signs: Temp Pulse Resp BP Pulse Ox 98.0 F 72 18 172/105 H 98 03/20/18 18:24 03/20/18 18:24 03/20/18 18:24 03/20/18 18:24 03/20/18 18:24 - Laboratory Result Diagrams: 03/20/18 13:49 03/20/18 14:50 Laboratory results interpreted by me: 03/20/18 13:49 WBC 12.6 H Absolute Neutrophils 8.9 H Discharge - Discharge Clinical Impression: Chest wall pain, Facial paresthesia Hypertension Qualifiers: Hypertension type: unspecified Qualified Code(s): I10 - Essential (primary) hypertension Condition: Good Disposition: HOME, SELF-CARE Instructions: Chest Wall Pain ([facility]), Chest Pain of Unclear Cause ([facility]), Edema, Peripheral ([facility]), Family Physicians / Practices, Hydrochlorothiazide ([facility]) Additional Instructions: Your evaluated today for elevated blood pressure and chest pain paresthesias in the face and swelling to her legs. Laboratory studies EKG chest x-ray did not show any critical pathology. Your chest x-ray does show a some enlargement of your heart that is very mild that is more likely due to underlying uncontrolled high blood pressure. This also probably the cause of the swelling of your legs. I highly recommend that we start you on a blood pressure medication, hydrochlorothiazide and that you follow-up with a primary care physician. I do not see any signs of cardiac ischemia no signs of heart attack no signs of stroke on your examination or workup today. Please return to ER if any symptoms worsen Prescriptions: Hydrochlorothiazide 25 mg PO DAILY #30 tablet Forms: Elevated Blood Pressure, Return to Work Referrals: CRISSY RIOS MD [ACTIVE STAFF] - Follow up as needed
[2018-03-20 18:25] VITALS: BP 172/105
== END 2018-03-20 18:23 | disposition home or self-care (01) ==
LOC: ER 11:36
DX: R07.9 Chest pain, unspecified (principal); R20.2 Paresthesia of skin; I10 Essential (primary) hypertension; Z88.0 Allergy status to penicillin; Z90.49 Acquired absence of other specified parts of digestive tract
CPT/HCPCS: 93005; 99285; 96360; 36415; 83735; 85025; 85610; 80053; 84484; 71045; 93010; J7030

== ENCOUNTER 2018-06-06 22:19 | Emergency (ER) | payer BC ==
--- NOTE | 2018-06-06 22:46 | ER Document Report ---
ED Medical Screen (RME) - General Chief Complaint: Abdominal Pain Stated Complaint: VOMITING AND ABDOMINAL PAIN Time Seen by Provider: 06/06/18 22:40 Mode of Arrival: Ambulatory Information source: Patient Notes: Patient is a 43-year-old male who ate shrimp this afternoon stated a couple hours after ingestion he started with lower abdominal pain and chest pain. Patient stated he has vomited 5 times since then denies diarrhea denies fever. Denies shortness of breath, hives, redness or itching to his neck or throat. TRAVEL OUTSIDE OF THE [place] IN LAST 30 DAYS: No - Related Data Allergies/Adverse Reactions: Penicillins Allergy (Verified 06/06/18 22:20) Past Medical History - Social History Chew tobacco use (# tins/day): No Frequency of alcohol use: Social Drug Abuse: None - Past Medical History Cardiac Medical History: Reports: Hx Hypertension - Noncompliant with medicaiton Denies: Hx Atrial Fibrillation, Hx Congestive Heart Failure, Hx DVT, Hx Heart Attack Renal/ Medical History: Denies: Hx Peritoneal Dialysis Past Surgical History: Reports: Hx Cholecystectomy - Immunizations Immunizations up to date: Yes Hx Diphtheria, Pertussis, Tetanus Vaccination: Yes - 2011 Physical Exam - Vital signs Vitals: Temp Pulse Resp BP Pulse Ox 97.5 F 94 21 H 167/119 H 100 06/06/18 22:24 06/06/18 22:24 06/06/18 22:24 06/06/18 22:24 06/06/18 22:24 - Abdominal Inspection: Morbidly Obese Distension: Distended Bowel sounds: Normal Tenderness: Tender - Suprapubic and left upper quadrant. Course - Vital Signs Vital signs: Temp Pulse Resp BP Pulse Ox 97.5 F 94 21 H 167/119 H 100 06/06/18 22:24 06/06/18 22:24 06/06/18 22:24 06/06/18 22:24 06/06/18 22:24
[2018-06-06] MEDS ORDERED: ONDANSETRON HCL INJ/PF 4 MG/2 ML SDV IV ONE ×2 (22:47→22:58)
[2018-06-06] MEDS ORDERED: ONDANSETRON 4 MG TAB.RAPDIS PO ONE (22:51)
[2018-06-06 23:30] LABS: ABSOLUTE BASOPHILS # (AUTO) 0.1 10^3/uL (0.0-0.2); ABSOLUTE EOSINOPHILS # (AUTO) 0.3 10^3/uL (0.0-0.6); ABSOLUTE LYMPHOCYTES (AUTO) 1.5 10^3/uL (0.5-4.7); ABSOLUTE MONOCYTES (AUTO) 1.1 10^3/uL (0.1-1.4); ABSOLUTE NEUT (AUTO) 14.1 10^3/uL (1.7-8.2); BASOPHILS % (AUTO) 0.6 % (0-2); EOSINOPHILS % (AUTO) 1.7 % (0-6); HEMATOCRIT 47.3 % (37.9-51.0); HEMOGLOBIN 15.9 g/dL (13.5-17.0); LYMPHOCYTES % (AUTO) 8.8 % (13-45); MEAN CORPUSCULAR HEMOGLOBIN 27.6 pg (27.0-33.4); MEAN CORPUSCULAR HGB CONC 33.6 g/dL (32.0-36.0); MEAN CORPUSCULAR VOLUME 82 fl (80-97); MONOCYTES % (AUTO) 6.3 % (3-13); PLATELET COUNT 296 10^3/uL (150-450); RED BLOOD COUNT 5.75 10^6/uL (4.35-5.55); RED CELL DISTRIBUTION WIDTH 14.3 % (11.5-14.0); SEGMENTED NEUTROPHILS % (AUTO) 82.6 % (42-78); TOTAL CELLS COUNTED % (AUTO) 100 %
--- NOTE | 2018-06-06 23:34 | RADIOLOGY REPORT (SQ) ---
EXAM DESCRIPTION: XR ABDOMEN SUPINE AND ERECT WITH CHEST (ABD ACUTE SERIES) COMPLETED DATE/TME: 06/06/2018 22:49 CLINICAL HISTORY: 43 years, Male, abd pain, vomiting COMPARISON: None. NUMBER OF VIEWS: Four TECHNIQUE: One PA view of the chest, two AP views of the abdomen and one upright view of the abdomen. LIMITATIONS: None. FINDINGS: Cardiomediastinal silhouette is within normal limits. No lung consolidate. No pleural effusion. No pneumothorax. No evidence of free intra-abdominal air. Nonobstructive bowel gas pattern. No focally dilated loop of bowel. No evidence to suggest bowel obstruction. Cholecystectomy clips are seen in the right upper quadrant. Osseous structures are without acute finding. IMPRESSION: No acute chest finding. Nonobstructive bowel gas pattern. 2011 [email or web address]- All Rights Reserved
[2018-06-07 00:04] LABS: ALANINE AMINOTRANSFERASE 51 U/L (21-72); ALBUMIN 4.6 g/dL (3.5-5.0); ALKALINE PHOSPHATASE 118 U/L (38-126); ANION GAP 11 (5-19); ASPARTATE AMINO TRANSFERASE 41 U/L (17-59); BILIRUBIN,DIRECT 0.4 mg/dL (0.0-0.4); BILIRUBIN,TOTAL 0.9 mg/dL (0.2-1.3); BLOOD UREA NITROGEN 13 mg/dL (7-20); CALCIUM 9.6 mg/dL (8.4-10.2); CARBON DIOXIDE 24 mmol/L (22-30); CHLORIDE 106 mmol/L (98-107); CREATINE KINASE 227 U/L (55-170); GLUCOSE 115 mg/dL (75-110); LIPASE 44.8 U/L (23-300); POTASSIUM 3.9 mmol/L (3.6-5.0); SODIUM 140.7 mmol/L (137-145); TOTAL PROTEIN 8.6 g/dL (6.3-8.2)
[2018-06-07 00:15] LABS: CREATINE KINASE MB 1.88 ng/mL (<4.55); TROPONIN I 0.023 ng/mL
[2018-06-07] MEDS ORDERED: NORMAL SALINE 1000 ML 1,000 ML IV ONE (00:22)
[2018-06-07] MEDS ORDERED: MORPHINE SULFATE 10 MG/ML INJ IV ONE (00:22)
--- NOTE | 2018-06-07 00:31 | ER Document Report ---
ED GI/ - General Chief Complaint: Abdominal Pain Stated Complaint: VOMITING AND ABDOMINAL PAIN Time Seen by Provider: 06/06/18 22:40 Mode of Arrival: Ambulatory TRAVEL OUTSIDE OF THE [place] IN LAST 30 DAYS: No - HPI Patient complains to provider of: Abdominal pain - 43-year-old man who presents for evaluation of recurrent vomiting and abdominal pain in the setting of having eaten shrimp earlier today. He has never had anything like this happen in the past, nothing seemed to make it better or worse, he did take aspirin to try and help with it after it started but it did not improve. This patient has a history of a cholecystectomy in the past as well as a hernia repair, he is continued to have normal bowel movements since this initial episode started around 4 PM which have been loose in character. He denies any fevers or chills, chest pain shortness of breath, dizziness diaphoresis, thinks that this might be food poisoning. - Related Data Allergies/Adverse Reactions: Penicillins Allergy (Verified 06/06/18 22:20) Past Medical History - General Information source: Patient - Social History Smoking Status: Never Smoker Chew tobacco use (# tins/day): No Frequency of alcohol use: Social Drug Abuse: None Family History: Hypertension Patient has suicidal ideation: No Patient has homicidal ideation: No - Past Medical History Cardiac Medical History: Reports: Hx Hypertension - Noncompliant with medicaiton Denies: Hx Atrial Fibrillation, Hx Congestive Heart Failure, Hx DVT, Hx Heart Attack Renal/ Medical History: Denies: Hx Peritoneal Dialysis Past Surgical History: Reports: Hx Cholecystectomy - Immunizations Immunizations up to date: Yes Hx Diphtheria, Pertussis, Tetanus Vaccination: Yes - 2011 Review of Systems - Review of Systems -: Yes All other systems reviewed and negative Physical Exam - Vital signs Vitals: Temp Pulse Resp BP Pulse Ox 97.5 F 94 21 H 167/119 H 100 06/06/18 22:24 06/06/18 22:24 06/06/18 22:24 06/06/18 22:24 06/06/18 22:24 - General General appearance: Appears well In distress: None - HEENT Head: Normocephalic Eyes: Normal Conjunctiva: Normal Cornea: Normal Extraocular movements intact: Yes Eyelashes: Normal Pupils: PERRL Corrective lenses worn: No - Respiratory Respiratory status: No respiratory distress Chest status: Nontender Breath sounds: Normal Chest palpation: Normal - Cardiovascular Rhythm: Regular Heart sounds: Normal auscultation Murmur: No - Abdominal Inspection: Morbidly Obese, Other - Large midline incision scar, right upper quadrant abdominal scar well-healed Bowel sounds: Normal Tenderness: Tender - Tender in the left upper quadrant, no rebound no guarding - Back Back: Normal - Extremities General upper extremity: Normal inspection, Nontender, Normal ROM, Normal strength General lower extremity: Normal inspection, Nontender, Normal ROM, Normal strength - Neurological Neuro grossly intact: Yes Cognition: Normal Orientation: AAOx4 [place] Coma Scale Eye Opening: Spontaneous [place] Coma Scale Verbal: Oriented [place] Coma Scale Motor: Obeys Commands [place] Coma Scale Total: 15 Speech: Normal Cranial nerves: Normal Cerebellar coordination: Normal Motor strength normal: LUE, RUE, LLE, RLE - Psychological Associated symptoms: Normal affect Course - Re-evaluation Re-evalutation: 06/07/18 00:30 43-year-old man who presents for evaluation of vomiting in the setting of having previously eaten some shrimp earlier today. He denies any fevers or chills, has had some loose bowel movements since that time is continued to pass gas per rectum. Does have a history of previous abdominal surgeries. On examination this gentleman is overall well appearing, his abdominal examination is benign though it is limited secondary to his morbid obesity. He does not have any focal rebound no appreciable guarding. Given that the patient had an ingestion immediately prior to his initiation of vomiting this likely represents an intoxication, will defer CT imaging at this time. We will plan for p.o. challenge reassessment following p.o. challenge. Patient demonstrated a leukocytosis likely as a result of demargination from his vomiting. Chemistry is unremarkable at this time save a modest increase in his lipase. Do not believe this represents pancreatitis or some other more insidious abdominal process. He had an EKG as well as a troponin drawn through triage despite not having any chest pain at this time, patient with a negative initial troponin and normal EKG a markedly atypical stories 43 years old he does have one risk factor bring his heart score to a 1. Believe this patient is likely safe for discharge as he been able to tolerate p.o. currently states that he feels much better at this time. We will plan for this patient undergo discharge with return precautions and a prescription for both Zofran ODT as well as Phenergan per rectum. He is in agreement at this time ambulatory without assistance and well- appearing. His abdominal examination remains benign at the time of discharge. - Vital Signs Vital signs: Temp Pulse Resp BP Pulse Ox 97.5 F 94 21 H 167/119 H 100 06/06/18 22:24 06/06/18 22:24 06/06/18 22:24 06/06/18 22:24 06/06/18 22:24 - Laboratory Result Diagrams: 06/06/18 23:15 06/06/18 23:40 Laboratory results interpreted by me: 06/06/18 06/06/18 23:15 23:40 WBC 17.0 H RBC 5.75 H RDW 14.3 H Seg Neutrophils % 82.6 H Lymphocytes % 8.8 L Absolute Neutrophils 14.1 H Glucose 115 H Creatine Kinase 227 H Total Protein 8.6 H Discharge - Discharge Clinical Impression: Vomiting Qualifiers: Vomiting type: unspecified Vomiting Intractability: non-intractable Nausea presence: with nausea Qualified Code(s): R11.2 - Nausea with vomiting, unspecified Abdominal pain Qualifiers: Abdominal location: unspecified location Qualified Code(s): R10.9 - Unspecified abdominal pain Condition: Good Disposition: HOME, SELF-CARE Instructions: Abdominal Pain ([facility]), Antinausea Medication ([facility]) Additional Instructions: You were seen for your abdominal pain and vomiting today it is possible that this was food poisoning. Use the prescribed nausea medication as needed. Try to drink a lot of fluids today. Return if you are unable to eat or drink, have worsening fevers or chills. Prescriptions: Ondansetron [Zofran Odt 4 mg Tablet] 1 - 2 tab PO Q4H PRN #15 tab.rapdis PRN Reason: For Nausea/Vomiting Promethazine HCl [Phenergan] 25 mg RC DAILY #10 supp.rect Forms: Elevated Blood Pressure
[2018-06-07 03:12] VITALS: BP 157/91
--- NOTE | 2018-06-07 08:20 | EKG REPORT ---
SEVERITY:- NORMAL ECG - SINUS RHYTHM : Confirmed by: Robbie Neri MD 07-Jun-2018 07:32:31
== END 2018-06-07 03:11 | disposition home or self-care (01) ==
LOC: ER 22:19
DX: R11.2 Nausea with vomiting, unspecified (principal); R10.9 Unspecified abdominal pain; E66.01 Morbid (severe) obesity due to excess calories; R14.3 Flatulence; D72.829 Elevated white blood cell count, unspecified; R10.812 Left upper quadrant abdominal tenderness; R14.0 Abdominal distension (gaseous); R07.9 Chest pain, unspecified; Z90.49 Acquired absence of other specified parts of digestive tract; Z98.890 Other specified postprocedural states; Z68.43 Body mass index [BMI] 50.0-59.9, adult
CPT/HCPCS: 93005; 99284; 96361; 96374; 96375; 36415; 82553; 82550; 83690; 85025; 80053; 84484; 74022; 93010; S0119; J2270; J2405; J7030

== ENCOUNTER 2019-04-27 15:13 | Inpatient (IN) | payer BC ==
[~2019-04-27 15:13] MED LIST: DEXAMETHASONE SOD PHOSPHATE INJ 4 MG/1 ML VIAL ONE; GLYCOPYRROLATE 1 MG/5 ML VIAL ONE; NEOSTIGMINE METHYLSULFATE 10 MG/10 ML VIAL ONE; ONDANSETRON HCL INJ/PF 4 MG/2 ML SDV ONE; PHENYLEPHRINE HCL INJ/PF 10 MG/1 ML SDV ONE; SUCCINYLCHOLINE CHLORIDE INJ 200 MG/10 ML VIAL ONE; VECURONIUM BROMIDE INJ 10 MG VIAL IV ONE
[2019-04-27] MEDS ORDERED: FENTANYL CITRATE INJ/PF 100 MCG/2 ML AMPUL IV ONE (15:49)
[2019-04-27] MEDS ORDERED: ONDANSETRON HCL INJ/PF 4 MG/2 ML SDV IV ONE (15:49)
--- NOTE | 2019-04-27 16:00 | ER Document Report ---
ED Medical Screen (RME) - General Chief Complaint: Abdominal Pain Stated Complaint: ABDOMINAL PAIN Time Seen by Provider: 04/27/19 15:42 Notes: Patient is a 44-year-old male who presents the emergency department with a chief complaint of abdominal pain. Patient states that his abdominal pain started last night. He has had some nausea and vomiting since this evening.. He states the pain is in his mid abdomen. He has history of hernia surgery and a cholecystectomy in the past. He states the pain is in the same area his hernia was. Patient has a history of hypertension. Exam: Morbidly obese. Tender mid abdomen. I have greeted and performed a rapid initial assessment of this patient. A comprehensive ED assessment and evaluation of the patient, analysis of test results and completion of medical decision making process will be conducted by an additional ED providers. TRAVEL OUTSIDE OF THE [place] IN LAST 30 DAYS: No - Related Data Allergies/Adverse Reactions: Penicillins Allergy (Verified 04/27/19 15:14) Past Medical History - Past Medical History Cardiac Medical History: Reports: Hx Hypertension - Noncompliant with medicaiton Denies: Hx Atrial Fibrillation, Hx Congestive Heart Failure, Hx DVT, Hx Heart Attack Renal/ Medical History: Denies: Hx Peritoneal Dialysis Past Surgical History: Reports: Hx Cholecystectomy - Immunizations Immunizations up to date: Yes Hx Diphtheria, Pertussis, Tetanus Vaccination: Yes - 2011 Physical Exam - Vital signs Vitals: Temp Pulse Resp BP Pulse Ox 97.6 F 95 24 H 186/108 H 98 04/27/19 15:29 04/27/19 15:29 04/27/19 15:29 04/27/19 15:29 04/27/19 15:29 Course - Vital Signs Vital signs: Temp Pulse Resp BP Pulse Ox 97.6 F 95 24 H 186/108 H 98 04/27/19 15:29 04/27/19 15:29 04/27/19 15:29 04/27/19 15:29 04/27/19 15:29
[2019-04-27 16:18] LABS: ABSOLUTE BASOPHILS # (AUTO) 0.1 10^3/uL (0.0-0.2); ABSOLUTE EOSINOPHILS # (AUTO) 0.1 10^3/uL (0.0-0.6); ABSOLUTE MONOCYTES (AUTO) 0.8 10^3/uL (0.1-1.4); ABSOLUTE NEUT (AUTO) 16.5 10^3/uL (1.7-8.2); BASOPHILS % (AUTO) 0.4 % (0-2); EOSINOPHILS % (AUTO) 0.3 % (0-6); HEMATOCRIT 47.8 % (37.9-51.0); HEMOGLOBIN 16.3 g/dL (13.5-17.0); LYMPHOCYTES % (AUTO) 5.6 % (13-45); MEAN CORPUSCULAR HEMOGLOBIN 27.9 pg (27.0-33.4); MEAN CORPUSCULAR HGB CONC 34.2 g/dL (32.0-36.0); MEAN CORPUSCULAR VOLUME 82 fl (80-97); MONOCYTES % (AUTO) 4.3 % (3-13); PLATELET COUNT 283 10^3/uL (150-450); RED BLOOD COUNT 5.86 10^6/uL (4.35-5.55); SEGMENTED NEUTROPHILS % (AUTO) 89.4 % (42-78); TOTAL CELLS COUNTED % (AUTO) 100 %; WHITE BLOOD COUNT 18.5 10^3/uL (4.0-10.5)
[2019-04-27 16:39] LABS: ALANINE AMINOTRANSFERASE 52 U/L (21-72); ALBUMIN 4.8 g/dL (3.5-5.0); ALKALINE PHOSPHATASE 126 U/L (38-126); ANION GAP 14 (5-19); ASPARTATE AMINO TRANSFERASE 54 U/L (17-59); BILIRUBIN,DIRECT 0.5 mg/dL (0.0-0.4); BILIRUBIN,TOTAL 1.6 mg/dL (0.2-1.3); BLOOD UREA NITROGEN 13 mg/dL (7-20); CALCIUM 9.8 mg/dL (8.4-10.2); CARBON DIOXIDE 20 mmol/L (22-30); CHLORIDE 104 mmol/L (98-107); CREATINE KINASE 271 U/L (55-170); GLUCOSE 113 mg/dL (75-110); POTASSIUM 4.7 mmol/L (3.6-5.0); TOTAL PROTEIN 8.9 g/dL (6.3-8.2)
[2019-04-27] MEDS ORDERED: HYDROMORPHONE HCL INJ/PF 2 MG/ML AMPULE IV ONE ×2 (16:43→19:41)
[2019-04-27] MEDS ORDERED: NORMAL SALINE 1000 ML 1,000 ML IV ONE (16:43)
[2019-04-27 16:50] LABS: CREATINE KINASE MB 2.21 ng/mL (<4.55); TROPONIN I 0.029 ng/mL
--- NOTE | 2019-04-27 18:03 | RADIOLOGY REPORT (SQ) ---
EXAM DESCRIPTION: CT ABD/PELVIS WITH IV ONLY COMPLETED DATE/TIME: 04/27/2019 5:47 pm REASON FOR STUDY: abdominal pain COMPARISON: 11/05/2016 TECHNIQUE: CT scan of the abdomen and pelvis performed using helical scanning technique with dynamic intravenous contrast injection. No oral contrast. Images reviewed with lung, soft tissue, and bone windows. Reconstructed coronal and sagittal MPR images reviewed. Delayed images for evaluation of the urinary system also acquired. All images stored on PACS. All CT scanners at this facility use dose modulation, iterative reconstruction, and/or weight based d osing when appropriate to reduce radiation dose to as low as reasonably achievable (ALARA). [facility]: Dose Right [facility]: CareDose [facility]: Dose Right [facility]: Teradose 4D [facility]: ImageShack CONTRAST TYPE AND DOSE: contrast/concentration: Isovue 350.00 mg/ml; Total Contrast Delivered: 100.0 ml; Total Saline Delivered: 65.9 ml RENAL FUNCTION: BUN 13; creatinine 0.88 RADIATION DOSE: CT Rad equipment meets quality standard of care and radiation dose reduction techniq ues were employed. CTDIvol: 3.6 - 14.4 mGy. DLP: 995 mGy-cm.. LIMITATIONS: Body habitus FINDINGS: LOWER CHEST: No significant findings. No nodules or infiltrates. LIVER: Hepatic steatosis. Normal size. No masses. No dilated ducts. SPLEEN: Normal size. No focal lesions. PANCREAS: No masses. No significant calcifications. No adjacent inflammation or peripancreatic fluid collections. Pancreatic duct not dilated. GALLBLADDER: Surgically absent. ADRENAL GLANDS: No significant masses or asymmetry. RIGHT KIDNEY AND URETER: No solid masses. No significant calcifications. No hydronephrosis or hyd roureter. LEFT KIDNEY AND URETER: No solid masses. No significant calcifications. No hydronephrosis or hydr oureter. AORTA AND VESSELS: No aneurysm. No dissection. Renal arteries, SMA, celiac without stenosis. RETROPERITONEUM: No retroperitoneal adenopathy, hemorrhage or masses. BOWEL AND PERITONEAL CAVITY: Midline supraumbilical abdominal wall special defect containing a loop o f small bowel with developing small bowel obstruction. The distal small bowel and colon are largely decompressed. APPENDIX: Normal. PELVIS: No mass. No free fluid. Normal bladder. ABDOMINAL WALL: Supraumbilical hernia as above. No additional abdominal wall findings. BONES: No significant or acute findings. OTHER: No other significant finding. IMPRESSION: NO SIGNIFICANT OR ACUTE FINDING IN THE ABDOMEN OR PELVIS ON CT SCAN WITH IV CONTRAST. COMMENT: Supraumbilical hernia containing a loop of small bowel with developing small bowel obstruct ion. Chronic and incidental findings as detailed above. TECHNICAL DOCUMENTATION: JOB ID: [id number] Quality ID # [id number]: Final reports with documentation of one or more dose reduction techniques (e.g., Au tomated exposure control, adjustment of the mA and/or kV according to patient size, use of iterative reconstruction technique) 2010 [employer]- All Rights Reserved Reading location - IP/workstation name: [email or web address]
--- NOTE | 2019-04-27 18:25 | ER Document Report ---
ED General - General Chief Complaint: Abdominal Pain Stated Complaint: ABDOMINAL PAIN Time Seen by Provider: 04/27/19 15:42 Notes: Patient is a 44-year-old male that presents to the emergency department for chief complaint of abdominal pain and vomiting. States that his pain started around 5 PM yesterday evening and got progressively worse throughout the course of today, he said multiple episodes of nausea and vomiting, he states that his vomiting has been green in color, nonbloody, denies any diarrhea, he states he has not had a bowel movement, and is concerned about that as well. He had light headedness, near syncopal episode earlier today as well. He reports having history of hernia and repair about 2 years ago of his abdomen. He states that the pain is similar to that, and just above the area where he had his hernia in the past. He currently rates his pain as a 9 out of 10 describes it as a constant aching and stabbing sensation in the middle of his abdomen, that is not improving, nothing seemed to make it better or worse. Denies noting any fevers, chills, night sweats, dysuria, hematuria, chest pain or shortness of breath. Past Medical History: Hypertension, noncompliant Past Surgical History: Hernia repair, cholecystectomy Social History: Denies current tobacco, alcohol or drug use. Family History: Reviewed and noncontributory for presenting illness Allergies: Reviewed, see documented allergy list. REVIEW OF SYSTEMS: Other than noted above, the 12 point review of systems was reviewed with the patient and were negative, all pertinent findings are included in the HPI. PHYSICAL EXAMINATION: Vital signs reviewed, nursing noted reviewed. GENERAL: Morbidly obese male, no acute distress, but does appear uncomfortable HEAD: Atraumatic, normocephalic. EYES: Eyes appear normal, extraocular movements intact, sclera anicteric, conjunctiva are normal. ENT: nares patent, oropharynx clear without exudates. Moist mucous membranes. NECK: Normal range of motion, supple without lymphadenopathy LUNGS: Breath sounds clear to auscultation bilaterally and equal. No wheezes rales or rhonchi. HEART: Regular rate and rhythm without murmurs ABDOMEN: Soft, obese, there is tenderness palpation, with the patient's prior surgical incisional scar is, and there is a palpable hernia in this area, though is not able to be reduced on my exam, hypoactive bowel sounds, however no rebound, guarding, or rigidity. No masses appreciated. EXTREMITIES: Nontender, good range of motion, no pitting or edema. NEUROLOGICAL: No focal neurological deficits. Moves all extremities spontaneously Motor and sensory grossly intact on exam. PSYCH: Normal mood, normal affect. SKIN: Warm, Dry, normal turgor, no rashes or lesions noted on exposed skin TRAVEL OUTSIDE OF THE [place] IN LAST 30 DAYS: No - Related Data Allergies/Adverse Reactions: Penicillins Allergy (Verified 04/27/19 15:14) Past Medical History - Social History Smoking Status: Former Smoker Family History: Reviewed & Not Pertinent, Hypertension Patient has suicidal ideation: No Patient has homicidal ideation: No - Past Medical History Cardiac Medical History: Reports: Hx Hypertension - Noncompliant with medicaiton Denies: Hx Atrial Fibrillation, Hx Congestive Heart Failure, Hx DVT, Hx Heart Attack Renal/ Medical History: Denies: Hx Peritoneal Dialysis Past Surgical History: Reports: Hx Cholecystectomy - Immunizations Immunizations up to date: Yes Hx Diphtheria, Pertussis, Tetanus Vaccination: Yes - 2011 Physical Exam - Vital signs Vitals: Temp Pulse Resp BP Pulse Ox 97.6 F 95 24 H 186/108 H 98 04/27/19 15:29 04/27/19 15:29 04/27/19 15:29 04/27/19 15:29 04/27/19 15:29 Course - Re-evaluation Re-evalutation: Patient seen and examined vital signs reviewed. Laboratory data and imaging were ordered as appropriate for the patient's presenting symptoms and complaint, with consideration of any critical or life threatening conditions that may be associated with their obtained history and exam as noted above. Patient was treated with IV fluids, Zofran and fentanyl were ordered in triage Results were reviewed when available and demonstrated CT imaging concerning for small bowel obstruction, with incarcerated hernia near the patient's prior hernia repair, in the supraumbilical region. He did have a leukocytosis as well, which is also concerning for SBO. The patient was re-evaluated and was still having some pain, is given IV Dilaudid for his pain, [address] NG was made, however the patient would not comply and could not keep it in so it was removed. Evaluation was most consistent with small bowel obstruction, incarcerated hernia, discussed the case with surgery, and recommended operative management, Dr. Ma did see the patient and agrees to admit and likely take to the OR this evening. *Note is created using voice recognition software and may contain spelling, syntax or grammatical errors. Laboratory 04/27/19 04/27/19 04/27/19 16:05 16:05 16:05 WBC 18.5 H RBC 5.86 H Hgb 16.3 Hct 47.8 MCV 82 MCH 27.9 MCHC 34.2 RDW 14.0 Plt Count 283 Seg Neutrophils % 89.4 H Lymphocytes % 5.6 L Monocytes % 4.3 Eosinophils % 0.3 Basophils % 0.4 Absolute Neutrophils 16.5 H Absolute Lymphocytes 1.0 Absolute Monocytes 0.8 Absolute Eosinophils 0.1 Absolute Basophils 0.1 Sodium 137.8 Potassium 4.7 Chloride 104 Carbon Dioxide 20 L Anion Gap 14 BUN 13 Creatinine 0.88 Est GFR ( Amer) > 60 Est GFR (Non-Af Amer) > 60 Glucose 113 H Calcium 9.8 Total Bilirubin 1.6 H Direct Bilirubin 0.5 H Neonat Total Bilirubin Not Reportable Neonat Direct Bilirubin Not Reportable Neonat Indirect Bili Not Reportable AST 54 ALT 52 Alkaline Phosphatase 126 Creatine Kinase 271 H CK-MB (CK-2) 2.21 Troponin I 0.029 Total Protein 8.9 H Albumin 4.8 Lipase 51.2 Abdomen/Pelvis CT 04/27/19 15:49 IMPRESSION: NO SIGNIFICANT OR ACUTE FINDING IN THE ABDOMEN OR PELVIS ON CT SCAN WITH IV CONTRAST. - Vital Signs Vital signs: Temp Pulse Resp BP Pulse Ox 97.6 F 95 26 H 166/109 H 96 04/27/19 15:29 04/27/19 15:29 04/27/19 18:27 04/27/19 18:27 04/27/19 18:27 - Laboratory Result Diagrams: 04/27/19 16:05 04/27/19 16:05 Laboratory results interpreted by me: 04/27/19 04/27/19 16:05 16:05 WBC 18.5 H RBC 5.86 H Seg Neutrophils % 89.4 H Lymphocytes % 5.6 L Absolute Neutrophils 16.5 H Carbon Dioxide 20 L Glucose 113 H Total Bilirubin 1.6 H Direct Bilirubin 0.5 H Creatine Kinase 271 H Total Protein 8.9 H - EKG Interpretation by Me Additional EKG results interpreted by me: EKG demonstrates sinus rhythm with a ventricular rate of 98 bpm, normal axis, QTC 491 ms, no evidence of acute ischemia in this EKG, this is compared with a prior EKG from 06/06/2018, without significant change. Discharge - Discharge Clinical Impression: Incarcerated ventral hernia, Small bowel obstruction Condition: Stable Disposition: ADMITTED INPATIENT Admitting Provider: Surgicalist - Dr. Ma Unit Admitted: OR
[2019-04-27] MEDS ORDERED: HYDRALAZINE HCL INJ/PF 20 MG/1 ML SDV IV ONE (18:45)
[2019-04-27] MEDS ORDERED: HYDRALAZINE HCL INJ/PF 20 MG/1 ML SDV ONE (18:46)
--- NOTE | 2019-04-27 18:55 | PDOC H&P ---
History of Present Illness Admission Date/PCP: 04/27/19 18:29 NELL WALKER MD Patient complains of: Abdominal pain, nausea, vomiting. History of Present Illness: JIAN SEYMOUR is a 44 year old male with a history of a supraumbilical hernia. The patient has required laparotomy for a strangulated hernia in this area in the past. He is morbidly obese. He presents with a 1 day history of abdominal pain, nausea, and vomiting. He reports that he cannot hold anything down. His pain is in the supraumbilical area and radiates to the left. His vomitus is gr een in color. Nothing makes the pain better, nothing makes it worse. He denies chest pain, shortness of breath, fevers, chills, melena, hematochezia, hematemesis, dizziness, orthostasis, blurry vision, headache, fatigue. He does report abdominal pain and malaise. Patient has a history of hypertension, however he does not take his home medications. Past Medical History Cardiac Medical History: Reports: Hypertension - Noncompliant with medicaiton Denies: Atrial Fibrillation, Congestive Heart Failure, DVT, Myocardial Infarction Past Surgical History Past Surgical History: Reports: Cholecystectomy, Other - Laparotomy with bowel resection due to strangulated ventral hernia. Social History Smoking Status: Unknown if Ever Smoked Frequency of Alcohol Use: Occasional - 3 beers per week Hx Recreational Drug Use: No Drugs: None Hx Prescription Drug Abuse: No Family History Family History: Hypertension Parental Family History Reviewed: Yes Children Family History Reviewed: Yes Sibling(s) Family History Reviewed.: Yes Medication/Allergy Home Medications: Hydrochlorothiazide 25 mg PO DAILY #30 tablet 03/20/18 Ondansetron [Zofran Odt 4 mg Tablet] 1 - 2 tab PO Q4H PRN #15 tab.rapdis 06/07/18 Promethazine HCl [Phenergan] 25 mg RC DAILY #10 supp.rect 06/07/18 Allergies/Adverse Reactions: Penicillins Allergy (Verified 04/27/19 15:14) Review of Systems Constitutional: PRESENT: anorexia. ABSENT: chills, fatigue, fever(s), headache(s), weakness Eyes: ABSENT: visual disturbances Ears: ABSENT: hearing changes Nose, Mouth, and Throat: ABSENT: sore throat Cardiovascular: ABSENT: chest pain Respiratory: ABSENT: cough Gastrointestinal: PRESENT: abdominal pain, bloating, heartburn, nausea, vomiting. ABSENT: hematemesis, hematochezia, melena Genitourinary: ABSENT: dysuria Musculoskeletal: ABSENT: back pain Integumentary: ABSENT: pruritus, rash Neurological: ABSENT: confusion, convulsions, dizziness Psychiatric: ABSENT: anxiety, depression Endocrine: ABSENT: cold intolerance, heat intolerance Hematologic/Lymphatic: ABSENT: easy bleeding, easy bruising Physical Exam Vital Signs: Temp Pulse Resp BP Pulse Ox 97.6 F 95 26 H 166/109 H 96 04/27/19 15:29 04/27/19 15:29 04/27/19 18:27 04/27/19 18:27 04/27/19 18:27 Intake & Output 04/26/19 04/27/19 04/28/19 06:59 06:59 06:59 Weight 162.3 kg General appearance: PRESENT: morbidly obese Head exam: PRESENT: atraumatic, normocephalic Eye exam: PRESENT: EOMI, PERRLA. ABSENT: scleral icterus Mouth exam: PRESENT: moist, neck supple Neck exam: ABSENT: meningismus, tenderness, thyromegaly, tracheal deviation Respiratory exam: PRESENT: unlabored. ABSENT: chest wall tenderness, tachypnea, wheezes Cardiovascular exam: PRESENT: RRR Pulses: PRESENT: normal radial pulses GI/Abdominal exam: PRESENT: distended, guarding - Voluntary guarding, hernia - Midline ventral hernia, nonreducible/incarcerated, soft, tenderness. ABSENT: rebound, rigid Rectal exam: PRESENT: deferred Extremities exam: ABSENT: clubbing Musculoskeletal exam: ABSENT: deformity Neurological exam: PRESENT: alert, awake, oriented to person, oriented to place, oriented to time, oriented to situation, CN II-XII grossly intact. ABSENT: motor sensory deficit Psychiatric exam: PRESENT: anxious. ABSENT: agitated, depressed Focused psych exam: ABSENT: delusional Skin exam: ABSENT: erythema, jaundice Results Laboratory Results: 04/27/19 16:05 04/27/19 16:05 04/27/19 04/27/19 16:05 16:05 WBC 18.5 H RBC 5.86 H Hgb 16.3 Hct 47.8 MCV 82 MCH 27.9 MCHC 34.2 RDW 14.0 Plt Count 283 Seg Neutrophils % 89.4 H Lymphocytes % 5.6 L Monocytes % 4.3 Eosinophils % 0.3 Basophils % 0.4 Absolute Neutrophils 16.5 H Absolute Lymphocytes 1.0 Absolute Monocytes 0.8 Absolute Eosinophils 0.1 Absolute Basophils 0.1 Sodium 137.8 Potassium 4.7 Chloride 104 Carbon Dioxide 20 L Anion Gap 14 BUN 13 Creatinine 0.88 Est GFR ( Amer) > 60 Est GFR (Non-Af Amer) > 60 Glucose 113 H Calcium 9.8 Total Bilirubin 1.6 H AST 54 ALT 52 Alkaline Phosphatase 126 Total Protein 8.9 H Albumin 4.8 Lipase 51.2 04/27/19 04/27/19 16:05 16:05 Creatine Kinase 271 H CK-MB (CK-2) 2.21 Troponin I 0.029 Impressions: Abdomen/Pelvis CT 04/27/19 15:49 IMPRESSION: NO SIGNIFICANT OR ACUTE FINDING IN THE ABDOMEN OR PELVIS ON CT SCAN WITH IV CONTRAST. Assessment & Plan - Diagnosis (1) Small bowel obstruction Is this a current diagnosis for this admission?: Yes (2) Incarcerated ventral hernia Is this a current diagnosis for this admission?: Yes - Plan Summary Plan Summary: This is a 44-year-old male with incarcerated ventral hernia and a small bowel obstruction. The patient appears to have a [place] cheese defect and an area of previous surgery. Patient has an 18,000 white count and an obvious transition zone on CT scan. I recommended surgical intervention to relieve the bowel obst ruction. The patient has agreed to this. Plan for exploratory laparotomy, possible bowel resection with primary closure of the hernia defect. Risks/benefits discussed, informed consent obtained, and all questions answered.
[2019-04-27] MEDS ORDERED: MIDAZOLAM 2 MG/2 ML INJ ONE (21:40)
[2019-04-27] MEDS ORDERED: HYDROMORPHONE HCL INJ/PF 2 MG/ML AMPULE ONE (21:40)
[2019-04-27] MEDS ORDERED: PROPOFOL INJ 200 MG/20 ML VIAL IV ONE (21:40)
[2019-04-27] MEDS ORDERED: FENTANYL CITRATE INJ/PF 250 MCG/5 ML AMPULE ONE (21:40)
[2019-04-27] MEDS ORDERED: VANCOMYCIN HCL INJ 1000 MG VIAL ONE (21:56)
[2019-04-27] MEDS ORDERED: BUPIVACAINE HCL 0.25 % INJ/PF (2.5 MG/1 ML) 30 ML VIAL ONE (22:18)
--- NOTE | 2019-04-27 22:50 | EKG REPORT ---
SEVERITY:- BORDERLINE ECG - SINUS RHYTHM BORDERLINE PROLONGED QT INTERVAL : Confirmed by: Adriana Thorne 27-Apr-2019 22:50:09
[2019-04-27] MEDS ORDERED: MEPERIDINE HCL/PF INJ 25 MG/1 ML DISP.SYRIN IV PRN (23:02)
[2019-04-27] MEDS ORDERED: DIPHENHYDRAMINE HCL 50 MG/ML VIAL IV PRN (23:02)
[2019-04-27] MEDS ORDERED: PROMETHAZINE HCL INJ 25 MG/1 ML VIAL IV PRN (23:02)
[2019-04-27] MEDS ORDERED: MORPHINE SULFATE 10 MG/ML INJ IV PRN (23:02)
[2019-04-27] MEDS ORDERED: FENTANYL CITRATE INJ/PF 100 MCG/2 ML AMPUL IV PRN ×3 (23:02)
[2019-04-28] MEDS ORDERED: GLUCAGON,HUMAN RECOMB 1 MG INJ SUBCUT PRN (00:40)
[2019-04-28] MEDS ORDERED: ONDANSETRON HCL INJ/PF 4 MG/2 ML SDV IV PRN (00:40)
[2019-04-28] MEDS ORDERED: DEXTROSE 40% GEL 15 GM TUBE PO PRN ×2 (00:40)
[2019-04-28] MEDS ORDERED: DEXTROSE 50%-WATER 25 GM/50 ML DISP.SYRIN IV PRN ×2 (00:40)
--- NOTE | 2019-04-28 01:01 | Operative Report ---
Nonrecallable Operative Report DATE OF SURGERY: 04/28/19 PREOPERATIVE DIAGNOSIS: 1. Incarcerated ventral hernia. #2 small bowel obstruction POSTOPERATIVE DIAGNOSIS: Same as above OPERATION: 1. Exploratory laparotomy. 2. Extensive lysis of adhesions. 3. Repair of ventral, midline, incarcerated, incisional hernia. #4 Implantation of Vicryl mesh for hernia repair. SURGEON: ISI SU ANESTHESIA: GA TISSUE REMOVED OR ALTERED: None COMPLICATIONS: None apparent ESTIMATED BLOOD LOSS: Minimal PROCEDURE: Drains/implants: #1. 15 [place] round Willem drain in the subcutaneous tissues. 2. Vicryl mesh implanted in the abdominal wall. Procedure in detail: After informed consent was obtained, the patient was b rought to the operating room and laid in the supine position. The area of the abdomen was prepped and draped in a normal sterile fashion. An incision was created within the bounds of a previous scar. This was done with a 15 blade scalpel. Dissection was carried through the subcutaneous tissue to the fascia using sharp dissection. The fascia was opened sharply, and with great care dissection was begun. Entry into the abdomen was difficult. There were multiple adhesions of the small bowel to the anterior abdominal wall. There were multiple [place] cheese defects with loops of bowel protruding through the fascia. This was carefully dissected, sharply. Once all the small bowel was freed from the anterior abdominal wall, attention was turned to lysis of adhesions from small bowel to small bowel. Once this was completed, the small bowel was run from the ileocecal valve to the ligament of Treitz. There were no serosal tears, areas of necrosis, or portions requiring resection. Once this was confirmed, the small bowel was returned to the abdominal cavity. Attention was then turned to closure of the defect. The defect was large, after all of the [place] cheese defects were excised. It was felt that a bridging mesh would be necessary. A 12 inch x 12 inch Vicryl mesh was then brought onto the field. The Vicryl mesh was placed into the abdominal cavity. The lower portion of the fascia was closed using #1 Ethibond suture in [id number] fashion. The upper portion was closed using the bridged Vicryl mesh. The mesh was sewn to the fascia using 0 Vicryl suture in simple running fashion. Once this was completed a 15 [place] Willem drain was placed over the mesh, beneath the fatty tissue. The subcutaneous fatty tissues were closed using 3-0 Vicryl suture in simple running fashion. The overlying skin was closed using skin maurizio. A dressing was placed, and the procedure was concluded. All sponge, instrument, needle counts were correct x2. Condition: Stable.
[2019-04-28] MEDS: MORPHINE SULFATE 10 MG/ML INJ IV PRN ×4 (01:31→20:34)
[2019-04-28] MEDS: DEXTROSE 5%-LACTATED RINGERS 1,000 ML IV PRN ×2 (01:32→21:32)
[2019-04-28] MEDS: KETOROLAC TROMETHAMINE INJ/PF 30 MG/1 ML SDV IV SCH ×3 (05:16→21:33)
[2019-04-28] MEDS: ENOXAPARIN SODIUM INJ 40 MG/0.4 ML DISP.SYRIN SUBCUT SCH (09:53)
[2019-04-28] MEDS: FAMOTIDINE INJ/PF 20 MG/2 ML SDV IV SCH ×2 (09:54→21:33)
--- NOTE | 2019-04-28 11:26 | PDOC PROGRESS REPORT ---
Subjective Progress Note for:: 04/28/19 Subjective:: feeling better Reason For Visit: BOWEL OBSTRUCTION,VENTRAL HERNIA Physical Exam Vital Signs: Temp Pulse Resp BP Pulse Ox 98.4 F 85 17 121/71 97 04/28/19 08:54 04/28/19 08:54 04/28/19 08:54 04/28/19 08:54 04/28/19 08:54 Intake & Output 04/27/19 04/28/19 04/29/19 06:59 06:59 06:59 Intake Total 2200 1000 Output Total 500 30 Balance 1700 1000 -30 Weight 162 kg Exam: NGT small amount of drainage. Pulled out DEZ drained about 30 ccs bloody fluid Results Laboratory Results: 04/27/19 16:05 04/27/19 16:05 04/27/19 04/27/19 16:05 16:05 WBC 18.5 H RBC 5.86 H Hgb 16.3 Hct 47.8 MCV 82 MCH 27.9 MCHC 34.2 RDW 14.0 Plt Count 283 Seg Neutrophils % 89.4 H Lymphocytes % 5.6 L Monocytes % 4.3 Eosinophils % 0.3 Basophils % 0.4 Absolute Neutrophils 16.5 H Absolute Lymphocytes 1.0 Absolute Monocytes 0.8 Absolute Eosinophils 0.1 Absolute Basophils 0.1 Sodium 137.8 Potassium 4.7 Chloride 104 Carbon Dioxide 20 L Anion Gap 14 BUN 13 Creatinine 0.88 Est GFR ( Amer) > 60 Est GFR (Non-Af Amer) > 60 Glucose 113 H Calcium 9.8 Total Bilirubin 1.6 H AST 54 ALT 52 Alkaline Phosphatase 126 Total Protein 8.9 H Albumin 4.8 Lipase 51.2 04/27/19 04/27/19 16:05 16:05 Creatine Kinase 271 H CK-MB (CK-2) 2.21 Troponin I 0.029 Impressions: Abdomen/Pelvis CT 04/27/19 15:49 IMPRESSION: NO SIGNIFICANT OR ACUTE FINDING IN THE ABDOMEN OR PELVIS ON CT SCAN WITH IV CONTRAST. Assessment & Plan - Diagnosis (1) Incarcerated ventral hernia Is this a current diagnosis for this admission?: Yes (2) Small bowel obstruction Is this a current diagnosis for this admission?: Yes - Time Time Spent with patient: 15-24 minutes - Inpatient Certification Medical Necessity: Need For IV Fluids - Plan Summary Plan Summary: D/C NGT but keep NPO today Continue IV fluids Recheck labs in am
[2019-04-28 12:51] LABS: HEMATOCRIT 42.9 % (37.9-51.0); HEMOGLOBIN 14.3 g/dL (13.5-17.0); MEAN CORPUSCULAR HEMOGLOBIN 27.5 pg (27.0-33.4); MEAN CORPUSCULAR HGB CONC 33.3 g/dL (32.0-36.0); MEAN CORPUSCULAR VOLUME 83 fl (80-97); PLATELET COUNT 230 10^3/uL (150-450); RED CELL DISTRIBUTION WIDTH 14.1 % (11.5-14.0); WHITE BLOOD COUNT 13.2 10^3/uL (4.0-10.5)
[2019-04-28 13:24] LABS: ABSOLUTE LYMPHOCYTES# (MANUAL) 0.8 10^3/uL (0.5-4.7); ABSOLUTE MONOCYTES # (MANUAL) 0.7 10^3/uL (0.1-1.4); BASOPHILS % (MANUAL) 0 % (0-2); EOSINOPHILS % (MANUAL) 0 % (0-6); LYMPHOCYTES % (MANUAL) 6 % (13-45); MONOCYTES % (MANUAL) 5 % (3-13); SEGMENTED NEUTROPHILS % (MAN) 89 % (42-78); TOTAL CELLS COUNTED 100
[2019-04-28 13:25] LABS: ANISOCYTOSIS SLIGHT; PLATELET COMMENT ADEQUATE
[2019-04-29] MEDS: MORPHINE SULFATE 10 MG/ML INJ IV PRN ×4 (03:39→19:13)
[2019-04-29 05:47] LABS: ABSOLUTE EOSINOPHILS # (AUTO) 0.1 10^3/uL (0.0-0.6); ABSOLUTE LYMPHOCYTES (AUTO) 0.9 10^3/uL (0.5-4.7); ABSOLUTE MONOCYTES (AUTO) 1.6 10^3/uL (0.1-1.4); ABSOLUTE NEUT (AUTO) 8.1 10^3/uL (1.7-8.2); BASOPHILS % (AUTO) 0.4 % (0-2); EOSINOPHILS % (AUTO) 0.8 % (0-6); HEMATOCRIT 41.5 % (37.9-51.0); HEMOGLOBIN 13.8 g/dL (13.5-17.0); LYMPHOCYTES % (AUTO) 8.4 % (13-45); MEAN CORPUSCULAR HEMOGLOBIN 27.7 pg (27.0-33.4); MEAN CORPUSCULAR HGB CONC 33.3 g/dL (32.0-36.0); MEAN CORPUSCULAR VOLUME 83 fl (80-97); MONOCYTES % (AUTO) 14.8 % (3-13); PLATELET COUNT 200 10^3/uL (150-450); RED BLOOD COUNT 4.99 10^6/uL (4.35-5.55); RED CELL DISTRIBUTION WIDTH 14.2 % (11.5-14.0); SEGMENTED NEUTROPHILS % (AUTO) 75.6 % (42-78); TOTAL CELLS COUNTED % (AUTO) 100 %; WHITE BLOOD COUNT 10.7 10^3/uL (4.0-10.5)
[2019-04-29] MEDS: KETOROLAC TROMETHAMINE INJ/PF 30 MG/1 ML SDV IV SCH ×3 (05:47→21:48)
[2019-04-29 06:21] LABS: ANION GAP 9 (5-19); BLOOD UREA NITROGEN 21 mg/dL (7-20); CALCIUM 8.4 mg/dL (8.4-10.2); CARBON DIOXIDE 23 mmol/L (22-30); CHLORIDE 107 mmol/L (98-107); GLUCOSE 96 mg/dL (75-110); POTASSIUM 3.9 mmol/L (3.6-5.0)
[2019-04-29] MEDS: DEXTROSE 5%-LACTATED RINGERS 1,000 ML IV PRN ×2 (09:30→19:28)
[2019-04-29] MEDS: FAMOTIDINE INJ/PF 20 MG/2 ML SDV IV SCH ×2 (09:30→21:49)
[2019-04-29] MEDS: ENOXAPARIN SODIUM INJ 40 MG/0.4 ML DISP.SYRIN SUBCUT SCH (09:31)
[2019-04-29] MEDS: VALSARTAN 160 MG TABLET PO SCH (12:14)
[2019-04-29] MEDS: HYDROCHLOROTHIAZIDE 12.5 MG TABLET PO SCH (12:14)
--- NOTE | 2019-04-29 14:47 | PDOC PROGRESS REPORT ---
Subjective Progress Note for:: 04/29/19 Subjective:: no pains. Passed flatus Reason For Visit: BOWEL OBSTRUCTION,VENTRAL HERNIA Physical Exam Vital Signs: Temp Pulse Resp BP Pulse Ox 98.9 F 103 H 18 175/90 H 92 04/29/19 11:45 04/29/19 11:45 04/29/19 11:45 04/29/19 11:45 04/29/19 11:45 Intake & Output 04/28/19 04/29/19 04/30/19 06:59 06:59 06:59 Intake Total 1000 420 Output Total 885 200 Balance 1000 -885 220 Weight 162 kg 162.5 kg Exam: Abdomen is soft and non tender. DEZ about 30 ccs serosanguinous. Results Laboratory Results: 04/29/19 05:26 04/29/19 05:26 04/29/19 04/29/19 05:26 05:26 WBC 10.7 H RBC 4.99 Hgb 13.8 Hct 41.5 MCV 83 MCH 27.7 MCHC 33.3 RDW 14.2 H Plt Count 200 Seg Neutrophils % 75.6 Lymphocytes % 8.4 L Monocytes % 14.8 H Eosinophils % 0.8 Basophils % 0.4 Absolute Neutrophils 8.1 Absolute Lymphocytes 0.9 Absolute Monocytes 1.6 H Absolute Eosinophils 0.1 Absolute Basophils 0.0 Sodium 138.5 Potassium 3.9 Chloride 107 Carbon Dioxide 23 Anion Gap 9 BUN 21 H Creatinine 1.13 Est GFR ( Amer) > 60 Est GFR (Non-Af Amer) > 60 Glucose 96 Calcium 8.4 04/27/19 04/27/19 16:05 16:05 Creatine Kinase 271 H CK-MB (CK-2) 2.21 Troponin I 0.029 Impressions: Abdomen/Pelvis CT 04/27/19 15:49 IMPRESSION: NO SIGNIFICANT OR ACUTE FINDING IN THE ABDOMEN OR PELVIS ON CT SCAN WITH IV CONTRAST. Assessment & Plan - Diagnosis (1) Incarcerated ventral hernia Is this a current diagnosis for this admission?: Yes (2) Small bowel obstruction Is this a current diagnosis for this admission?: Yes - Time Time Spent with patient: 15-24 minutes - Inpatient Certification Medical Necessity: Need Close Monitoring Due to Risk of Patient Decompensation, Need For IV Fluids, Risk of Complication if Not Cared For in Hospital - Plan Summary Plan Summary: Start clears today Leave drain until drainage less than 30 ccs/day D/C [place] and get PT to help him ambulate Resume patient's Diovan po for hypertension
[2019-04-30] MEDS: MORPHINE SULFATE 10 MG/ML INJ IV PRN ×4 (02:28→20:19)
[2019-04-30] MEDS: KETOROLAC TROMETHAMINE INJ/PF 30 MG/1 ML SDV IV SCH ×3 (05:23→21:08)
[2019-04-30] MEDS: DEXTROSE 5%-LACTATED RINGERS 1,000 ML IV PRN (05:25)
[2019-04-30] MEDS: FAMOTIDINE INJ/PF 20 MG/2 ML SDV IV SCH ×2 (09:51→21:08)
[2019-04-30] MEDS: ENOXAPARIN SODIUM INJ 40 MG/0.4 ML DISP.SYRIN SUBCUT SCH (09:51)
[2019-04-30] MEDS: VALSARTAN 160 MG TABLET PO SCH (09:52)
[2019-04-30] MEDS: HYDROCHLOROTHIAZIDE 12.5 MG TABLET PO SCH (09:52)
--- NOTE | 2019-04-30 12:12 | PDOC PROGRESS REPORT ---
Subjective Progress Note for:: 04/30/19 Subjective:: Feels well. Hungry. Passing gas. No nausea. Reason For Visit: BOWEL OBSTRUCTION,VENTRAL HERNIA Physical Exam Vital Signs: Temp Pulse Resp BP Pulse Ox 98.2 F 90 18 152/96 H 94 04/30/19 10:58 04/30/19 10:58 04/30/19 10:58 04/30/19 10:58 04/30/19 10:58 Intake & Output 04/29/19 04/30/19 05/01/19 06:59 06:59 06:59 Intake Total 686 Output Total 885 470 Balance -885 216 Weight 162.5 kg 162 kg General appearance: PRESENT: no acute distress, cooperative Respiratory exam: PRESENT: clear to auscultation cecilia Cardiovascular exam: PRESENT: RRR GI/Abdominal exam: PRESENT: other - Soft, nondistended, minimal tenderness. Wound clean dry and intact. Drain output is still blood-tinged. Results Laboratory Results: 04/29/19 05:26 04/29/19 05:26 04/27/19 04/27/19 16:05 16:05 Creatine Kinase 271 H CK-MB (CK-2) 2.21 Troponin I 0.029 Impressions: Abdomen/Pelvis CT 04/27/19 15:49 IMPRESSION: NO SIGNIFICANT OR ACUTE FINDING IN THE ABDOMEN OR PELVIS ON CT SCAN WITH IV CONTRAST. Assessment & Plan - Diagnosis (1) Incarcerated ventral hernia Is this a current diagnosis for this admission?: Yes Plan: Status post repair with Vicryl mesh. Looks good. Keep drain in as per surgeon request. Will advance diet. Possible discharge patient home tomorrow.
[2019-05-01] MEDS: KETOROLAC TROMETHAMINE INJ/PF 30 MG/1 ML SDV IV SCH (05:38)
[2019-05-01] MEDS: MORPHINE SULFATE 10 MG/ML INJ IV PRN ×2 (05:38→09:48)
[2019-05-01] MEDS: VALSARTAN 160 MG TABLET PO SCH (09:33)
[2019-05-01] MEDS: FAMOTIDINE INJ/PF 20 MG/2 ML SDV IV SCH (09:34)
[2019-05-01] MEDS: HYDROCHLOROTHIAZIDE 12.5 MG TABLET PO SCH (09:34)
[2019-05-01] MEDS: ENOXAPARIN SODIUM INJ 40 MG/0.4 ML DISP.SYRIN SUBCUT SCH (09:34)
--- NOTE | 2019-05-01 11:02 | PDOC DISCHARGE SUMMARY ---
General - Admit/Disc Date/PCP Admission Date/Primary Care Provider: 04/27/19 18:29 NELL WALKER MD Discharge Date: 05/01/19 - Additional Information Resuscitation Status: Full Code Discharge Activity: Activity As Tolerated, No Lifting Over 10 Pounds Home Medications: Valsartan/Hydrochlorothiazide [Diovan Hct 320-12.5 mg Tab] 1 tab PO DAILY 04/28/19 History of Present Illness Patient complains of: see dictation History of Present Illness: JIAN SEYMOUR is a 44 year old male Hospital Course Hospital Course: see dictation Physical Exam Vital Signs: Temp Pulse Resp BP Pulse Ox 98.4 F 97 18 152/89 H 95 05/01/19 00:00 05/01/19 00:00 05/01/19 00:00 05/01/19 00:00 05/01/19 00:00 Intake & Output 04/30/19 05/01/19 05/02/19 06:59 06:59 06:59 Intake Total 686 1070 Output Total 470 50 Balance 216 1020 Weight 162 kg 162 kg General appearance: PRESENT: no acute distress Mouth exam: PRESENT: moist Neck exam: PRESENT: full ROM Respiratory exam: PRESENT: clear to auscultation cecilia Cardiovascular exam: PRESENT: RRR GI/Abdominal exam: PRESENT: soft, other - dresssing dry jerry serous Extremities exam: PRESENT: full ROM Musculoskeletal exam: PRESENT: full ROM Neurological exam: PRESENT: alert, awake, oriented to person, oriented to place Psychiatric exam: PRESENT: appropriate affect Skin exam: PRESENT: dry Results Laboratory Results: 04/29/19 05:26 04/29/19 05:26 04/27/19 04/27/19 16:05 16:05 Creatine Kinase 271 H CK-MB (CK-2) 2.21 Troponin I 0.029 Impressions: Abdomen/Pelvis CT 04/27/19 15:49 IMPRESSION: NO SIGNIFICANT OR ACUTE FINDING IN THE ABDOMEN OR PELVIS ON CT SCAN WITH IV CONTRAST. Qualifiers - * PATIENT BEING DISCHARGED WITH ANY OF THE FOLLOWING DIAGNOSIS: No VTE patient discharged on overlapping Therapy?: No Reason(s) for not prescribing Overlap Therapy:: Not indicated Reason(s) for not prescribing Anti-thrombolytic therapy:: Drug intolerance Reason(s) for not prescribing Anti-coagulation therapy:: Tx not tolerated Reason(s) for not prescribing Statins therapy:: Tx not tolerated Reason(s) for not prescribing Aspirin therapy:: Not indicated Reason(s) for not prescribing Statin therapy:: Not indicated Reason(s) for not prescribing ACEI/ARBS:: Not indicated Acute Heart Failure - Is this a Heart Failure Patient?: No Plan Time Spent: Less than 30 Minutes - ok for dc home will f/u in surgery clinic next wk with conor
--- NOTE | 2019-05-01 11:15 | DISCHARGE SUMMARY E ---
Discharge Summary NAME: JIAN SEYMOUR : 1975 AGE: 44Y ADMITTED: 04/27/2019 DISCHARGED: 05/01/2019 ADMISSION DIAGNOSIS: INCARCERATED VENTRAL HERNIA. DISCHARGE DIAGNOSIS: INCARCERATED VENTRAL HERNIA. OPERATIVE PROCEDURE: Exploratory laparotomy with ventral hernia repair with mesh. SURGEON: Mulugeta Ma MD REASON FOR HOSPITALIZATION/HOSPITAL COURSE: This is a 44-year-old male who presented to the Emergency Room with increasing abdominal pain and a bowel obstruction secondary to incarcerated ventral hernia. He was taken to the operating room by Dr. Ma for release of the incarcerated ventral hernia and repair. He underwent that procedure by Dr. Ma and tolerated it well. He had a routine benign postop course. Yesterday he was started on a clear liquid diet which was slowly advanced to a regular diet. By the time of discharge he was afebrile with stable vital signs. He was passing flatus, tolerating a regular diet. His wound is clean and dry and he is ready for discharge home. DISCHARGE MEDICATIONS: Tramadol 50 mg p.o. q. 8 p.r.n. pain. He also has stool softeners at home which he is instructed to resume. No weight lifting anything greater than 10 pounds for 4 to 6 weeks. He will follow up with Dr. Ma a week after discharge. He has a Anton-Reed drain on the right side which he has been instructed on how to empty and that will be removed in clinic. FINAL DIAGNOSIS: Incarcerated ventral hernia with bowel obstruction. DICTATING PHYSICIAN: LYNNE MARTINEZ M.D. [id number] [facility]#: [id number] ID: [id number] JOB#: [id number] ACCT: [id number] cc:LYNNE MARTINEZ M.D. [facility],
[2019-05-01 11:23] VITALS: BP 153/90
== END 2019-05-01 13:00 | disposition home or self-care (01) | DRG 337 ==
LOC: ER 15:13 → EH 18:29 → 4S 04-28 01:25
PROVIDERS: ATTEND Surgery
PROC: 0WUF0JZ Supplement Abdominal Wall with Synthetic Substitute, Open Approach (ICD-10-PCS; principal; 2019-04-28)
PROC: 0DN80ZZ Release Small Intestine, Open Approach (ICD-10-PCS; 2019-04-28)
DX: K43.6 Other and unspecified ventral hernia with obstruction, without gangrene (principal); I10 Essential (primary) hypertension; Z88.0 Allergy status to penicillin; Z82.49 Family history of ischemic heart disease and other diseases of the circulatory system; Z90.49 Acquired absence of other specified parts of digestive tract; Z87.891 Personal history of nicotine dependence; Z91.14 Patient's other noncompliance with medication regimen
CPT/HCPCS: 36415; 74177; 752; 80048; 80053; 82550; 82553; 83690; 84484; 85025; 93005; 93010; 96361; 96374; 96375; 99285; C1781; J0330; J0360; J1100; J1170; J1650; J1885; J2250; J2270; J2370; J2405; J2704; J2710; J3010; J3370; J3490; J7030; J7121; S0028

== ENCOUNTER → 2020-09-04 | Outpatient (CLI) | payer BC ==
--- NOTE | 2020-09-04 15:05 | RADIOLOGY REPORT (SQ) ---
EXAM DESCRIPTION: CHEST 2 VIEWS IMAGES COMPLETED DATE/TIME: 09/04/2020 2:50 pm REASON FOR STUDY: (Z01.811)ENCOUNTER FOR PREPROCEDURAL RESPIRATORY EXAMINATION COMPARISON: PA and lateral views of the chest from 11/05/2016. EXAM PARAMETERS: NUMBER OF VIEWS: Two views. TECHNIQUE: PA and lateral views of the chest were obtained. RADIATION DOSE: NA LIMITATIONS: None. FINDINGS: LUNGS AND PLEURA: No consolidation, pleural effusion or pneumothorax. MEDIASTINUM AND HILAR STRUCTURES: No mediastinal or hilar contour abnormality. HEART AND VASCULAR STRUCTURES: The cardiac silhouette and pulmonary vasculature are within normal guerrero its. BONES: No acute findings. HARDWARE: None in the chest. OTHER: No other finding. IMPRESSION: No acute cardiopulmonary process. TECHNICAL DOCUMENTATION: JOB ID: [id number] 2010 [employer]- All Rights Reserved Reading location - IP/workstation name: [email or web address]
[2020-09-04 15:13] LABS: ABSOLUTE EOSINOPHILS # (AUTO) 0.3 10^3/uL (0.0-0.6); ABSOLUTE LYMPHOCYTES (AUTO) 1.8 10^3/uL (0.5-4.7); ABSOLUTE MONOCYTES (AUTO) 0.9 10^3/uL (0.1-1.4); ABSOLUTE NEUT (AUTO) 7.4 10^3/uL (1.7-8.2); BASOPHILS % (AUTO) 0.4 % (0-2); EOSINOPHILS % (AUTO) 3.2 % (0-6); HEMATOCRIT 43.4 % (37.9-51.0); HEMOGLOBIN 14.7 g/dL (13.5-17.0); LYMPHOCYTES % (AUTO) 17.6 % (13-45); MEAN CORPUSCULAR HEMOGLOBIN 27.8 pg (27.0-33.4); MEAN CORPUSCULAR HGB CONC 33.8 g/dL (32.0-36.0); MEAN CORPUSCULAR VOLUME 82 fl (80-97); MONOCYTES % (AUTO) 8.2 % (3-13); PLATELET COUNT 280 10^3/uL (150-450); RED BLOOD COUNT 5.28 10^6/uL (4.35-5.55); RED CELL DISTRIBUTION WIDTH 13.9 % (11.5-14.0); SEGMENTED NEUTROPHILS % (AUTO) 70.6 % (42-78); TOTAL CELLS COUNTED % (AUTO) 100 %; WHITE BLOOD COUNT 10.5 10^3/uL (4.0-10.5)
[2020-09-04 15:36] LABS: ANION GAP 7 (5-19); BLOOD UREA NITROGEN 14 mg/dL (7-20); CALCIUM 9.3 mg/dL (8.4-10.2); CARBON DIOXIDE 29 mmol/L (22-30); CHLORIDE 102 mmol/L (98-107); GLUCOSE 85 mg/dL (75-110)
--- NOTE | 2020-09-04 16:56 | EKG REPORT ---
SEVERITY:- BORDERLINE ECG - SINUS RHYTHM PROBABLE LEFT ATRIAL ABNORMALITY : Confirmed by: David Mary MD 04-Sep-2020 16:56:23
== END ==
LOC: OD 13:50
PROVIDERS: ATTEND Surgery
DX: Z01.810 Encounter for preprocedural cardiovascular examination (principal); Z01.811 Encounter for preprocedural respiratory examination; Z01.812 Encounter for preprocedural laboratory examination; E66.01 Morbid (severe) obesity due to excess calories; I10 Essential (primary) hypertension
CPT/HCPCS: 36415; 71046; 80048; 84443; 85025; 93005; 93010